=== PATIENT | female | born 1965 | race African-American/Black ===

== ENCOUNTER 2016-11-10 17:11 | Emergency (ER) ==
[2016-11-10] MEDS ORDERED: PHENERGAN IM ONE (19:58)
[2016-11-10] MEDS ORDERED: NUBAIN IM ONE (19:58)
[2016-11-10 20:28] VITALS: BP 142/74
--- NOTE | 2016-11-10 20:34 | PROVIDER DOCUMENTATION ---
HPI-Headache - General Chief Complaint: Headache Stated Complaint: HEADACHE Time Seen by Provider: 11/10/16 19:42 Source: patient Allergies/Adverse Reactions: Patient Allergies Allergy/AdvReac Type Severity Reaction Status Date / Time ondansetron HCl * Allergy Intermediate DIZZINESS Verified 11/04/16 03:32 [From Zofran] prochlorperazine maleate * Allergy Mild FLUSHING Verified 11/04/16 03:32 [From Compazine] sumatriptan [From Imitrex] Allergy Mild SHORTNESS Verified 11/04/16 03:32 OF BREATH prochlorperazine Allergy Unknown Verified 11/04/16 03:32 [From Compazine] prochlorperazine edisylate * Allergy Unknown Verified 11/04/16 03:32 [From Compazine] sumatriptan succinate * Allergy SHORTNESS Verified 11/04/16 03:32 [From Imitrex] OF BREATH Home Medications: Zolmitriptan Nasal [place] [Zomig Nasal [place]] 5 mg PO BID PRN 11/29/14 Dapagliflozin/Metformin HCl [Xigduo Xr 10 mg-500 mg Tablet] 1 tab PO DAILY 08/01 Liraglutide [Victoza] 1 applicatn IM DAILY 08/01/16 Topiramate [Topamax] 250 mg PO BID 08/01/16 Duloxetine [Cymbalta] 90 mg PO DAILY 09/25/16 - History of Present Illness-Headache Nature of Presenting Problem: 51 y/o F with history of migraines presents with migraine HARRELL that began at 10am this morning. She describes HARRELL as located at the left forehead around eye with associated nausea and photophobia, which is typical of her usual migraines. Trigger for her migraine is her menstrual cycle and she is currently menstruating. Currently rates HARRELL as 9/10. Patient reports history of migraines since she was 10 years old and has numerous ER vists for migraines. She has an appointment with her neurologist (Dr. Gaspar) this month for botox injections for migraines. Prior workup includes MRI/CT. Headache Location: reports: frontal (left) Quality of Pain: reports: throbbing Severity: reports: severe Onset/Duration: reports: this morning Timing: reports: still present Headache Context: reports: other (menses) Headache History: reports: frequent headaches, history of migraines Any recent trauma/injury?: reports: none Headache severity at the maximum: severe Headache Exacerbated by:: reports: light Modifying Factors: improves with: nothing Associated Symptoms: denies: fainting, dizziness, neck/back pain, fever/chills, nausea, numbness in legs/feet, vomiting Similar Symptoms Previously?: Yes Review of Systems - Adult - REVIEW OF SYSTEMS - ADULT Constitutional: reports: no symptoms reported. denies: chills, fever Eyes: reports: no symptoms reported. denies: decreased vision, blurred vision, double vision Ears, Nose, Mouth & Throat: reports: no symptoms reported Cardiovascular: reports: no symptoms reported Respiratory: reports: no symptoms reported Gastrointestinal: reports: nausea. denies: abdominal pain, diarrhea, vomiting Genitourinary: reports: no symptoms reported. denies: flank pain Musculoskeletal: reports: no symptoms reported. denies: bone pain, back pain Integumentary: reports: no symptoms reported. denies: itching, rash Neurological: reports: headache/migraines. denies: dizziness/vertigo, loss of balance, numbness, paresthesia Psychiatric: reports: no symptoms reported Endocrine: reports: no symptoms reported Hematologic/Lymphatic: reports: no symptoms reported Allergic/Immunologic: reports: no symptoms reported All Other Systems: Reviewed and Negative Past History - Adult - PAST MEDICAL HISTORY-ADULT Review of Records: reports: Nursing Assessment Review, Medications Reviewed Major Childhood Illnesses: reports: denies history Cardiovascular: reports: HTN Respiratory: reports: asthma Genitourinary: reports: denies history Musculoskeletal: reports: denies history Neurological: reports: headaches/migraines Psychiatric: reports: anxiety, depression Endocrine/Immune: reports: Diabetes Additional History: Frequent visits to the ER - PRIOR SURGERIES/PROCEDURES Surgical/Procedure History: reports: reviewed, not pertinent - PRIOR HOSPITALIZATIONS Prior Hospitalizations: reports: for other non-related - IMMUNIZATION STATUS Childhood Immunizations: See Nurse Assessment Flu Vaccine: See Nurse Assessment - FAMILY HISTORY Family History: reviewed, not pertinent Physical Exam- Neurological - Physical Exam-Neuro Initial Vital Signs Reviewed: Yes General Appearance: appears well, alert, no apparent distress Eye Exam: bilateral eye: normal inspection, PERRL, EOMI HENMT: normocephalic/atraumatic, normal ENT inspection, TMs normal, pharynx normal Head Injury: no evidence of injury Neck: non-tender, full range of motion, supple, normal inspection. negative: Brudzinski's sign, lymphadenopathy, meningismus Respiratory: chest non-tender, lungs clear, normal breath sounds, no pleuratic chest pain, no respiratory distress, no accessory muscle use Cardiovascular: normal peripheral pulses, regular rate, rhythm, no edema, no gallop, no JVD, no murmur Abdominal Exam: normal bowel sounds, non tender, soft, no organomegaly, no pulsatile mass Lymphatic: no adenopathy Extremity: 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, non-tender, normal gait, normal inspection, no pedal edema, no calf tenderness, normal capillary refill, pelvis stable retrimmer Exam: normal hearing, normal speech, PERRL Coordination/Gait: normal finger to nose, normal gait, negative Romberg's sign Motor/Sensory: no motor deficit, no sensory deficit, no pronator drift, negative Babinski's sign Neurologic: retrimmer II-XII nml as tested, no motor/sensory deficits. negative: facial droop, focal weakness, motor weakness, sensory deficit Integumentary: normal color, normal turgor, warm/dry Psych/Mental Status: AL, normal mood/affect, normal thought content, normal thought process, oriented x 3 - Glascow Coma Scale Best Eye Response: (4) open spontaneously Best Verbal Response: (5) oriented Best Motor Response: (6) obeys commands Total Glascow Score: 15 Progress - PLAN OF CARE/RESULTS Progress/Plan/Lab Results: Orders Category Date Time Status Nalbuphine [Nubain] Med 11/10/16 19:58 Discontinued 10 mg IM NOW ONE Promethazine [Phenergan] Med 11/10/16 19:58 Discontinued 25 mg IM NOW ONE Vital Signs Temp Pulse Resp BP Pulse Ox 11/10/16 20:27 98 F 84 18 142/74 99 11/10/16 17:22 97.4 F L 105 H 18 135/70 ondansetron HCl * [From Zofran] Allergy (Intermediate, Verified 11/04/16 03:32) DIZZINESS prochlorperazine maleate * [From Compazine] Allergy (Mild, Verified 11/04/16 03: 32) FLUSHING sumatriptan [From Imitrex] Allergy (Mild, Verified 11/04/16 03:32) SHORTNESS OF BREATH prochlorperazine [From Compazine] Allergy (Verified 11/04/16 03:32) Unknown prochlorperazine edisylate * [From Compazine] Allergy (Verified 11/04/16 03:32) Unknown sumatriptan succinate * [From Imitrex] Allergy (Verified 11/04/16 03:32) SHORTNESS OF BREATH Zolmitriptan Nasal [place] [Zomig Nasal [place]] 5 mg PO BID PRN 11/29/14 Albuterol Sulfate [Albuterol Sulfate Hfa] 1 - 2 puff IH 3-4XDAY PRN PRN #1 hfa.aer.ad 08/26/15 Dapagliflozin/Metformin HCl [Xigduo Xr 10 mg-500 mg Tablet] 1 tab PO DAILY 08/01 Liraglutide [Victoza] 1 applicatn IM DAILY 08/01/16 Topiramate [Topamax] 250 mg PO BID 08/01/16 Duloxetine [Cymbalta] 90 mg PO DAILY 09/25/16 Departure - Departure Time of Disposition Order: 20:36 DIAGNOSIS: Migraine Disposition: HOME 01 Certified Medical Emergency: Emergent Condition: Good Additional Instructions: ED Follow Up Instructions: You have been treated by a care provider in the Emergency Department. These instructions are being provided to you so you can have an understanding of how to care for yourself upon discharge. Upon discharge from the Emergency Department, you are responsible for making arrangements for follow-up care by a physician of your choice. Take all prescribed medications as directed. Return to the Emergency Department immediately for any new or worsening symptoms. You may call the Physician Referral phone number at [phone] to obtain a list of Physicians who are taking new patients. Referrals: Washington Barlow [Primary Care Provider] - Forms: Return to School/Parent Work Instructions: Recurrent Migraine Headache, [id number] Attestation - Physician/ Mid-level Attestation Patient care was provided by Mid-level provider (IDENTITY ACCESS MANAGEMENT ARCHITECT/PA):: Yes Mid-level provider:: Alberta Dutta Mid-level documentation review:: The Mid-level provider documentation, treatment plan and medical decision making was reviewed by the physician who agrees with all treatment and medical decision making by the MLP.
== END 2016-11-10 20:28 | disposition home or self-care (01) ==
LOC: P.ED 17:11
DX: G43.909 Migraine, unspecified, not intractable, without status migrainosus (principal); R51 Headache; R11.0 Nausea; H53.149 Visual discomfort, unspecified; I10 Essential (primary) hypertension; E11.9 Type 2 diabetes mellitus without complications; F41.9 Anxiety disorder, unspecified; F32.9 Major depressive disorder, single episode, unspecified; Z79.899 Other long term (current) drug therapy
CPT/HCPCS: 96372; J2300; J2550

== ENCOUNTER 2016-11-15 16:09 | Emergency (ER) ==
[2016-11-15 16:32] VITALS: BP 132/73
[2016-11-15] MEDS ORDERED: PHENERGAN IM ONE (17:02)
[2016-11-15] MEDS ORDERED: NUBAIN IM ONE (17:02)
--- NOTE | 2016-11-15 17:15 | PROVIDER DOCUMENTATION ---
HPI-Headache - General Chief Complaint: Headache Stated Complaint: HEADACHE Time Seen by Provider: 11/15/16 16:47 Source: patient Allergies/Adverse Reactions: Patient Allergies Allergy/AdvReac Type Severity Reaction Status Date / Time ondansetron HCl * Allergy Intermediate DIZZINESS Verified 11/04/16 03:32 [From Zofran] prochlorperazine maleate * Allergy Mild FLUSHING Verified 11/04/16 03:32 [From Compazine] sumatriptan [From Imitrex] Allergy Mild SHORTNESS Verified 11/04/16 03:32 OF BREATH prochlorperazine Allergy Unknown Verified 11/04/16 03:32 [From Compazine] prochlorperazine edisylate * Allergy Unknown Verified 11/04/16 03:32 [From Compazine] sumatriptan succinate * Allergy SHORTNESS Verified 11/04/16 03:32 [From Imitrex] OF BREATH Home Medications: Zolmitriptan Nasal [place] [Zomig Nasal [place]] 5 mg PO BID PRN 11/29/14 Dapagliflozin/Metformin HCl [Xigduo Xr 10 mg-500 mg Tablet] 1 tab PO DAILY 08/01 Liraglutide [Victoza] 1 applicatn IM DAILY 08/01/16 Topiramate [Topamax] 250 mg PO BID 08/01/16 Duloxetine [Cymbalta] 90 mg PO DAILY 09/25/16 - History of Present Illness-Headache Nature of Presenting Problem: This pt, who is well known to the ED, presents today c complaints of HARRELL. This is similar to all previous episodes. No new symptoms. Headache Location: reports: global Quality of Pain: reports: aching Severity: reports: mild Onset/Duration: reports: this morning Timing: reports: still present Headache History: reports: history of migraines Headache severity at the maximum: moderate Headache Exacerbated by:: reports: light, noise Similar Symptoms Previously?: Yes Recently seen or treated by another doctor?: Yes Review of Systems - Adult - REVIEW OF SYSTEMS - ADULT Constitutional: reports: no symptoms reported. denies: chills, fatique Eyes: reports: no symptoms reported. denies: discharge, dry eyes Ears, Nose, Mouth & Throat: reports: no symptoms reported. denies: ear discharge, ear pain Cardiovascular: reports: no symptoms reported. denies: chest pain, edema Respiratory: reports: no symptoms reported. denies: chronic cough, cough Gastrointestinal: reports: no symptoms reported. denies: abdominal pain, hematemesis Genitourinary: reports: no symptoms reported. denies: dysuria, discharge Musculoskeletal: reports: no symptoms reported. denies: bone pain, back pain Integumentary: reports: no symptoms reported. denies: hives, hair loss Neurological: reports: headache/migraines. denies: ataxia, dizziness/vertigo Psychiatric: reports: no symptoms reported. denies: anxiety, anti-depressant use Endocrine: reports: no symptoms reported Hematologic/Lymphatic: reports: no symptoms reported Allergic/Immunologic: reports: no symptoms reported All Other Systems: Reviewed and Negative Past History - Adult - PAST MEDICAL HISTORY-ADULT Review of Records: reports: Old Records Reviewed, Nursing Assessment Review, Medications Reviewed, Social history reviewed & non-contributory. Major Childhood Illnesses: reports: denies history Cardiovascular: reports: HTN Respiratory: reports: asthma Gastrointestinal: reports: denies history Obstetrical/Gynecological: reports: denies history Genitourinary: reports: denies history Musculoskeletal: reports: denies history Neurological: reports: headaches/migraines Psychiatric: reports: anxiety, depression Endocrine/Immune: reports: Diabetes Other Conditions: reports: denies history Additional History: Frequent visits to the ER - PRIOR SURGERIES/PROCEDURES Surgical/Procedure History: reports: reviewed, not pertinent - PRIOR HOSPITALIZATIONS Prior Hospitalizations: reports: for other non-related - IMMUNIZATION STATUS Childhood Immunizations: See Nurse Assessment Flu Vaccine: See Nurse Assessment - FAMILY HISTORY Family History: reviewed, not pertinent Physical Exam- Neurological - Physical Exam-Neuro Initial Vital Signs Reviewed: Yes General Appearance: appears well, alert, no apparent distress Eye Exam: bilateral eye: normal inspection, PERRL, EOMI HENMT: normocephalic/atraumatic, normal ENT inspection, TMs normal, pharynx normal Head Injury: no evidence of injury Neck: non-tender, full range of motion, supple, normal inspection. negative: limited range of motion, lymphadenopathy, meningismus Respiratory: chest non-tender, lungs clear, normal breath sounds, no pleuratic chest pain, no respiratory distress, no accessory muscle use. negative: respiratory distress, decreased breath sounds, accessory muscle use Cardiovascular: normal peripheral pulses, regular rate, rhythm, no edema, no gallop, no JVD, no murmur. 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 negative: abnormal speech, facial asymmetry, facial droop, facial paresthesias, facial weakness, gaze palsy , tongue deviation to R, tongue deviation to L Coordination/Gait: normal finger to nose, normal gait, negative Romberg's sign Motor/Sensory: no motor deficit, no sensory deficit, no pronator drift, negative Babinski's sign. negative: sensory deficit, weak motor strength RUE, weak motor strength LUE, weak motor strength RLE, weak motor strength LLE Neurologic: scrub wheel operator II-XII nml as tested, no motor/sensory deficits. negative: facial droop, focal weakness, motor weakness, sensory deficit Integumentary: normal color, normal turgor, warm/dry Psych/Mental Status: AL, normal mood/affect, normal thought content, normal thought process, oriented x 3 - Glascow Coma Scale Best Eye Response: (4) open spontaneously Best Verbal Response: (5) oriented Best Motor Response: (6) obeys commands Total Glascow Score: 15 Progress - PLAN OF CARE/RESULTS Progress/Plan/Lab Results: Orders Category Date Time Status Nalbuphine [Nubain] Med 11/15/16 17:02 Discontinued 10 mg IM NOW ONE Promethazine [Phenergan] Med 11/15/16 17:02 Discontinued 25 mg IM NOW ONE Vital Signs Temp Pulse Resp BP Pulse Ox 11/15/16 16:28 98 F 103 H 18 132/73 96 ondansetron HCl * [From Zofran] Allergy (Intermediate, Verified 11/04/16 03:32) DIZZINESS prochlorperazine maleate * [From Compazine] Allergy (Mild, Verified 11/04/16 03: 32) FLUSHING sumatriptan [From Imitrex] Allergy (Mild, Verified 11/04/16 03:32) SHORTNESS OF BREATH prochlorperazine [From Compazine] Allergy (Verified 11/04/16 03:32) Unknown prochlorperazine edisylate * [From Compazine] Allergy (Verified 11/04/16 03:32) Unknown sumatriptan succinate * [From Imitrex] Allergy (Verified 11/04/16 03:32) SHORTNESS OF BREATH Zolmitriptan Nasal [place] [Zomig Nasal [place]] 5 mg PO BID PRN 11/29/14 Albuterol Sulfate [Albuterol Sulfate Hfa] 1 - 2 puff IH 3-4XDAY PRN PRN #1 hfa.aer.ad 08/26/15 Dapagliflozin/Metformin HCl [Xigduo Xr 10 mg-500 mg Tablet] 1 tab PO DAILY 08/01 Liraglutide [Victoza] 1 applicatn IM DAILY 08/01/16 Topiramate [Topamax] 250 mg PO BID 08/01/16 Duloxetine [Cymbalta] 90 mg PO DAILY 09/25/16 Departure - Departure Time of Disposition Order: 17:16 DIAGNOSIS: Migraine Qualifiers: Migraine type: unspecified Status migrainosus presence: without status migrainosus Intractability: not intractable Qualified Code(s): G43.909 - Migraine, unspecified, not intractable, without status migrainosus Disposition: HOME 01 Certified Medical Emergency: Urgent Condition: Good Additional Instructions: Follow up with your primary care provider. ED Follow Up Instructions: You have been treated by a care provider in the Emergency Department. These instructions are being provided to you so you can have an understanding of how to care for yourself upon discharge. Upon discharge from the Emergency Department, you are responsible for making arrangements for follow-up care by a physician of your choice. Take all prescribed medications as directed. Return to the Emergency Department immediately for any new or worsening symptoms. You may call the Physician Referral phone number at [phone] to obtain a list of Physicians who are taking new patients. Attestation - Physician/ Mid-level Attestation Patient care was provided by Mid-level provider (PRESS SETUP OPERATOR/PA):: Yes Mid-level provider:: Dick Collins Mid-level documentation review:: The Mid-level provider documentation, treatment plan and medical decision making was reviewed by the physician who agrees with all treatment and medical decision making by the MLP.
== END 2016-11-15 17:40 | disposition home or self-care (01) ==
LOC: P.ED 16:09
DX: G43.909 Migraine, unspecified, not intractable, without status migrainosus (principal); R51 Headache; I10 Essential (primary) hypertension; E11.9 Type 2 diabetes mellitus without complications; F41.9 Anxiety disorder, unspecified; F32.9 Major depressive disorder, single episode, unspecified; Z79.899 Other long term (current) drug therapy
CPT/HCPCS: 96372; J2300; J2550

== ENCOUNTER 2016-12-31 11:52 | Emergency (ER) ==
[2016-12-31 12:01] VITALS: BP 149/89
[2016-12-31] MEDS ORDERED: PHENERGAN IM ONE (12:14)
[2016-12-31] MEDS ORDERED: NUBAIN IM ONE (12:14)
--- NOTE | 2016-12-31 12:16 | PROVIDER DOCUMENTATION ---
HPI-Headache <Bria Torres - Last Filed: 12/31/16 12:15> - General Source: patient - History of Present Illness-Headache Headache Location: reports: global Quality of Pain: reports: throbbing Severity: reports: mild Onset/Duration: reports: other (chronic) Timing: reports: still present, constant Headache Context: reports: nothing Headache History: reports: frequent headaches, chronic headaches, history of migraines Any recent trauma/injury?: reports: none Headache severity at the maximum: moderate Headache Exacerbated by:: denies: light Modifying Factors: improves with: other Associated Symptoms: reports: headache. denies: chest pain, neck/back pain, fever/chills, insomnia, nausea, paresthesia, vomiting Similar Symptoms Previously?: Yes Recently seen or treated by another doctor?: Yes <Soy Pérez - Last Filed: 12/31/16 12:24> - General Chief Complaint: Headache Stated Complaint: HEADACHE Time Seen by Provider: 12/31/16 12:14 Allergies/Adverse Reactions: Patient Allergies Allergy/AdvReac Type Severity Reaction Status Date / Time ondansetron HCl * Allergy Intermediate DIZZINESS Verified 11/04/16 03:32 [From Zofran] prochlorperazine maleate * Allergy Mild FLUSHING Verified 11/04/16 03:32 [From Compazine] sumatriptan [From Imitrex] Allergy Mild SHORTNESS Verified 11/04/16 03:32 OF BREATH prochlorperazine Allergy Unknown Verified 11/04/16 03:32 [From Compazine] prochlorperazine edisylate * Allergy Unknown Verified 11/04/16 03:32 [From Compazine] sumatriptan succinate * Allergy SHORTNESS Verified 11/04/16 03:32 [From Imitrex] OF BREATH Home Medications: Home Medication List Medication Instructions Recorded Confirmed Last Taken Type Duloxetine [Cymbalta] 90 mg PO DAILY 06/02/14 12/29/16 07/12/14 08:00 History Loratadine [Claritin] 10 mg PO DAILY 06/02/14 12/29/16 07/12/14 08:00 History Metformin [Glucophage] 500 mg PO DAILY 06/02/14 12/29/16 07/12/14 08:00 History Topiramate [Topamax] 100 mg PO BID 06/02/14 12/29/16 07/12/14 08:00 History Zolmitriptan Nasal [place] [Zomig 5 mg PO BID PRN 11/29/14 12/29/16 09/25/16 History Nasal [place]] Albuterol Sulfate [Albuterol 1 - 2 puff IH 3-4XDAY PRN PRN #1 08/26/15 12/29/16 09/25/16 Rx Sulfate Hfa] hfa.aer.ad Dapagliflozin/Metformin HCl 1 tab PO DAILY 08/01/16 12/29/16 09/25/16 History [Xigduo Xr 10 mg-500 mg Tablet] Liraglutide [Victoza] 1 applicatn IM DAILY 08/01/16 12/29/16 09/25/16 History Topiramate [Topamax] 250 mg PO BID 08/01/16 12/29/16 09/25/16 History Duloxetine [Cymbalta] 90 mg PO DAILY 09/25/16 12/29/16 09/25/16 History Rizatriptan Benzoate [Maxalt] 10 mg PO DAILY PRN PRN #3 tablet 11/17/16 Unknown Rx Clindamycin [Cleocin] 300 mg PO Q6HR #60 capsule 11/23/16 12/29/16 Unknown Rx Dapagliflozin/Metformin HCl 1 each PO DAILY #30 tab.bp.24h 11/23/16 12/29/16 Unknown Rx [Xigduo Xr 10 mg-500 mg Tablet] Dapagliflozin/Metformin HCl 1 each PO DAILY #30 tab.bp.24h 12/09/16 12/29/16 Unknown Rx [Xigduo Xr 10 mg-1,000 mg Tab] Duloxetine HCl [Cymbalta] 90 mg PO DAILY #30 capsule. 12/09/16 12/29/16 Unknown Rx Duloxetine [Cymbalta] 30 mg PO DAILY #30 capsule 12/09/16 12/29/16 Unknown Rx Duloxetine [Cymbalta] 60 mg PO DAILY #30 capsule 12/09/16 12/29/16 Unknown Rx Liraglutide [Victoza] 1.8 mg SUBQ DAILY #5 pen.injctr 12/09/16 12/29/16 Unknown Rx - History of Present Illness-Headache Nature of Presenting Problem: patient is 51 yo f that presents to the Er with her typical migraine headache that she is seen for multiple times a week. She denies any focal neuro issues. She does have some photophobia. Denies vomiting, fever, or neck pain (Soy Pérez) Review of Systems - Adult - REVIEW OF SYSTEMS - ADULT Constitutional: denies: chills, fever Eyes: denies: decreased vision, blurred vision, double vision Ears, Nose, Mouth & Throat: denies: ear pain, sinus problem, throat pain, throat swelling Cardiovascular: denies: chest pain, palpitations, syncope Respiratory: denies: shortness of breath, wheezing Gastrointestinal: denies: abdominal pain, diarrhea, nausea, vomiting Genitourinary: reports: no symptoms reported Musculoskeletal: denies: back pain, joint pain, neck pain Integumentary: reports: no symptoms reported Neurological: reports: headache/migraines. denies: dizziness/vertigo, seizure, syncope Psychiatric: reports: no symptoms reported Endocrine: reports: no symptoms reported Hematologic/Lymphatic: reports: no symptoms reported Allergic/Immunologic: reports: no symptoms reported All Other Systems: Reviewed and Negative <Soy Pérez - Last Filed: 12/31/16 12:24> Past History - Adult - PAST MEDICAL HISTORY-ADULT Cardiovascular: reports: HTN Respiratory: reports: asthma Neurological: reports: headaches/migraines Psychiatric: reports: anxiety, depression Endocrine/Immune: reports: Diabetes Additional History: Frequent visits to the ER - PRIOR SURGERIES/PROCEDURES Surgical/Procedure History: reports: none, reviewed, not pertinent - PRIOR HOSPITALIZATIONS Prior Hospitalizations: reports: for other non-related - IMMUNIZATION STATUS Childhood Immunizations: See Nurse Assessment Flu Vaccine: See Nurse Assessment - FAMILY HISTORY Family History: reviewed, not pertinent <Bria Torres - Last Filed: 12/31/16 12:15> - PAST MEDICAL HISTORY-ADULT Review of Records: reports: Nursing Assessment Review, Medications Reviewed Neurological: reports: headaches/migraines Psychiatric: reports: anxiety Endocrine/Immune: reports: Diabetes Diabetes Type: Type 2 - PRIOR SURGERIES/PROCEDURES Surgical/Procedure History: reports: reviewed, not pertinent - IMMUNIZATION STATUS Childhood Immunizations: See Nurse Assessment Flu Vaccine: See Nurse Assessment - FAMILY HISTORY Family History: reviewed, not pertinent - SOCIAL HISTORY Smoking: cigarettes, less than 1 pack/day Alcohol Use Frequency: occasionally Living Situation: family <Soy Pérez - Last Filed: 12/31/16 12:24> Physical Exam- Neurological - Physical Exam-Neuro Initial Vital Signs Reviewed: Yes General Appearance: alert, no apparent distress Eye Exam: bilateral eye: normal inspection, PERRL HENMT: normocephalic/atraumatic, moist mucous membranes, normal ENT inspection Head Injury: no evidence of injury. negative: flap, raccoon eyes Neck: full range of motion, normal inspection. negative: lymphadenopathy Respiratory: lungs clear, normal breath sounds, no respiratory distress, no accessory muscle use Cardiovascular: regular rate, rhythm, no edema, no murmur Abdominal Exam: normal bowel sounds, non tender, soft Extremity: 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, normal inspection clam dredger Exam: normal hearing, normal speech, PERRL Motor/Sensory: no motor deficit, no sensory deficit Neurologic: clam dredger II-XII nml as tested, no motor/sensory deficits Integumentary: normal color, warm/dry Psych/Mental Status: normal mood/affect, normal thought content, normal thought process, oriented x 3 - Glascow Coma Scale Best Eye Response: (4) open spontaneously Best Verbal Response: (5) oriented Best Motor Response: (6) obeys commands Total Glascow Score: 15 <Soy Pérez - Last Filed: 12/31/16 12:24> Progress <Bria Torres - Last Filed: 12/31/16 12:15> <Soy Pérez - Last Filed: 12/31/16 12:24> - PLAN OF CARE/RESULTS Progress/Plan/Lab Results: Vital Signs Temp Pulse Resp BP Pulse Ox 12/31/16 12:01 98 F 100 H 20 149/89 99 12/31/16 11:56 98 F 99 ondansetron HCl * [From Zofran] Allergy (Intermediate, Verified 11/04/16 03:32) DIZZINESS prochlorperazine maleate * [From Compazine] Allergy (Mild, Verified 11/04/16 03: 32) FLUSHING sumatriptan [From Imitrex] Allergy (Mild, Verified 11/04/16 03:32) SHORTNESS OF BREATH prochlorperazine [From Compazine] Allergy (Verified 11/04/16 03:32) Unknown prochlorperazine edisylate * [From Compazine] Allergy (Verified 11/04/16 03:32) Unknown sumatriptan succinate * [From Imitrex] Allergy (Verified 11/04/16 03:32) SHORTNESS OF BREATH Duloxetine [Cymbalta] 90 mg PO DAILY 06/02/14 Loratadine [Claritin] 10 mg PO DAILY 06/02/14 Metformin [Glucophage] 500 mg PO DAILY 06/02/14 Topiramate [Topamax] 100 mg PO BID 06/02/14 Zolmitriptan Nasal [place] [Zomig Nasal [place]] 5 mg PO BID PRN 11/29/14 Albuterol Sulfate [Albuterol Sulfate Hfa] 1 - 2 puff IH 3-4XDAY PRN PRN #1 hfa.aer.ad 08/26/15 Dapagliflozin/Metformin HCl [Xigduo Xr 10 mg-500 mg Tablet] 1 tab PO DAILY 08/01 Liraglutide [Victoza] 1 applicatn IM DAILY 08/01/16 Topiramate [Topamax] 250 mg PO BID 08/01/16 Duloxetine [Cymbalta] 90 mg PO DAILY 09/25/16 Rizatriptan Benzoate [Maxalt] 10 mg PO DAILY PRN PRN #3 tablet 11/17/16 Clindamycin [Cleocin] 300 mg PO Q6HR #60 capsule 11/23/16 Dapagliflozin/Metformin HCl [Xigduo Xr 10 mg-500 mg Tablet] 1 each PO DAILY #30 tab.bp.24h 11/23/16 Dapagliflozin/Metformin HCl [Xigduo Xr 10 mg-1,000 mg Tab] 1 each PO DAILY #30 tab.bp.24h 12/09/16 Duloxetine HCl [Cymbalta] 90 mg PO DAILY #30 capsule. 12/09/16 Duloxetine [Cymbalta] 30 mg PO DAILY #30 capsule 12/09/16 Duloxetine [Cymbalta] 60 mg PO DAILY #30 capsule 12/09/16 Liraglutide [Victoza] 1.8 mg SUBQ DAILY #5 pen.injctr 12/09/16 Orders Category Date Time Status Nalbuphine [Nubain] Med 12/31/16 12:14 Discontinued 20 mg IM NOW ONE Promethazine [Phenergan] Med 12/31/16 12:14 Discontinued 25 mg IM NOW ONE (Soy Pérez) Departure - Departure Time of Disposition Order: 12:15 Certified Medical Emergency: Emergent <Bria Torres - Last Filed: 12/31/16 12:15> <Soy Pérez - Last Filed: 12/31/16 12:24> - Departure DIAGNOSIS: Migraine Qualifiers: Migraine type: without aura Status migrainosus presence: without status migrainosus Intractability: not intractable Qualified Code(s): G43.009 - Migraine without aura, not intractable, without status migrainosus Disposition: HOME 01 Condition: Stable Additional Instructions: Follow up with the neurologist ED Follow Up Instructions: You have been treated by a care provider in the Emergency Department. These instructions are being provided to you so you can have an understanding of how to care for yourself upon discharge. Upon discharge from the Emergency Department, you are responsible for making arrangements for follow-up care by a physician of your choice. Take all prescribed medications as directed. Return to the Emergency Department immediately for any new or worsening symptoms. You may call the Physician Referral phone number at [phone] to obtain a list of Physicians who are taking new patients. Referrals: Washington Barlow [Primary Care Provider] - Attestation - Scribe Verification/Attestation Scribe:: Soy Pérez Acting as Scribe for:: Bria Torres Scribe documention review:: This chart was documented by a scribe and accurately reflects the service the provider performed and the decisions made by the provider. - Physician/ CARL Attestation Patient care was provided by Advanced Practice Provider:: Yes Advanced Practice Provider:: Bria Torres Advanced Practice Provider documentation review:: The Mid-level provider documentation, treatment plan and medical decision making was reviewed by the physician who agrees with all treatment and medical decision making by the MLP. <Soy Pérez - Last Filed: 12/31/16 12:24> Physician Attestation - Physician Attestation I, the provider, attest to the following statement:: Bria C. Hennigar Physician documentation Attestation:: This documentation recorded by the scribe accurately reflects the service I personally performed and the decisions made by me. <Soy Pérez - Last Filed: 12/31/16 12:24>
== END 2016-12-31 12:55 | disposition home or self-care (01) ==
LOC: P.ED 11:52
DX: G43.009 Migraine without aura, not intractable, without status migrainosus (principal); R51 Headache; I10 Essential (primary) hypertension; F41.9 Anxiety disorder, unspecified; F32.9 Major depressive disorder, single episode, unspecified; E11.9 Type 2 diabetes mellitus without complications; F17.210 Nicotine dependence, cigarettes, uncomplicated; Z79.899 Other long term (current) drug therapy
CPT/HCPCS: 96372; J2300; J2550

== ENCOUNTER 2017-01-02 12:37 | Emergency (ER) ==
[2017-01-02 12:49] VITALS: BP 129/68
[2017-01-02] MEDS ORDERED: PHENERGAN IM ONE (13:27)
[2017-01-02] MEDS ORDERED: NUBAIN IM ONE (13:27)
--- NOTE | 2017-01-02 13:32 | PROVIDER DOCUMENTATION ---
HPI-Headache - General Chief Complaint: Headache Stated Complaint: HEADACHE Time Seen by Provider: 01/02/17 12:53 Source: patient Allergies/Adverse Reactions: Patient Allergies Allergy/AdvReac Type Severity Reaction Status Date / Time ondansetron HCl * Allergy Intermediate DIZZINESS Verified 11/04/16 03:32 [From Zofran] prochlorperazine maleate * Allergy Mild FLUSHING Verified 11/04/16 03:32 [From Compazine] sumatriptan [From Imitrex] Allergy Mild SHORTNESS Verified 11/04/16 03:32 OF BREATH prochlorperazine Allergy Unknown Verified 11/04/16 03:32 [From Compazine] prochlorperazine edisylate * Allergy Unknown Verified 11/04/16 03:32 [From Compazine] sumatriptan succinate * Allergy SHORTNESS Verified 11/04/16 03:32 [From Imitrex] OF BREATH Home Medications: Home Medication List Medication Instructions Recorded Confirmed Last Taken Type Duloxetine [Cymbalta] 90 mg PO DAILY 06/02/14 12/29/16 07/12/14 08:00 History Loratadine [Claritin] 10 mg PO DAILY 06/02/14 12/29/16 07/12/14 08:00 History Metformin [Glucophage] 500 mg PO DAILY 06/02/14 12/29/16 07/12/14 08:00 History Topiramate [Topamax] 100 mg PO BID 06/02/14 12/29/16 07/12/14 08:00 History Zolmitriptan Nasal [place] [Zomig 5 mg PO BID PRN 11/29/14 12/29/16 09/25/16 History Nasal [place]] Albuterol Sulfate [Albuterol 1 - 2 puff IH 3-4XDAY PRN PRN #1 08/26/15 12/29/16 09/25/16 Rx Sulfate Hfa] hfa.aer.ad Dapagliflozin/Metformin HCl 1 tab PO DAILY 08/01/16 12/29/16 09/25/16 History [Xigduo Xr 10 mg-500 mg Tablet] Liraglutide [Victoza] 1 applicatn IM DAILY 08/01/16 12/29/16 09/25/16 History Topiramate [Topamax] 250 mg PO BID 09/12/29/16 09/25/16 History Duloxetine [Cymbalta] 90 mg PO DAILY 09/25/16 12/29/16 09/25/16 History Rizatriptan Benzoate [Maxalt] 10 mg PO DAILY PRN PRN #3 tablet 11/17/16 Unknown Rx Clindamycin [Cleocin] 300 mg PO Q6HR #60 capsule 11/23/16 12/29/16 Unknown Rx Dapagliflozin/Metformin HCl 1 each PO DAILY #30 tab.bp.24h 11/23/16 12/29/16 Unknown Rx [Xigduo Xr 10 mg-500 mg Tablet] Dapagliflozin/Metformin HCl 1 each PO DAILY #30 tab.bp.24h 12/09/16 12/29/16 Unknown Rx [Xigduo Xr 10 mg-1,000 mg Tab] Duloxetine HCl [Cymbalta] 90 mg PO DAILY #30 capsule. 12/09/16 12/29/16 Unknown Rx Duloxetine [Cymbalta] 30 mg PO DAILY #30 capsule 12/09/16 12/29/16 Unknown Rx Duloxetine [Cymbalta] 60 mg PO DAILY #30 capsule 12/09/16 12/29/16 Unknown Rx Liraglutide [Victoza] 1.8 mg SUBQ DAILY #5 pen.injctr 12/09/16 12/29/16 Unknown Rx Hydroxyzine Pamoate [Vistaril] 25 mg PO TID PRN PRN #30 capsule 01/02/17 Unknown Rx - History of Present Illness-Headache Nature of Presenting Problem: 51 y/o BF presents to ED with one day hx of HARRELL. Pt states long hx of HARRELL and is seen in the ED routinely for them. states also having anxiety due to father passing away yesterday. Denies vision changes, N/V. States HARRELL is typical pattern in L frontal region and 8/10. Review of Systems - Adult - REVIEW OF SYSTEMS - ADULT Constitutional: reports: no symptoms reported. denies: chills, fever Eyes: reports: no symptoms reported. denies: blurred vision, double vision Ears, Nose, Mouth & Throat: reports: no symptoms reported. denies: ear pain, nose pain Cardiovascular: reports: no symptoms reported. denies: chest pain, palpitations Respiratory: reports: no symptoms reported. denies: dyspnea on exertion, shortness of breath Gastrointestinal: reports: no symptoms reported. denies: nausea, vomiting Genitourinary: reports: no symptoms reported. denies: dysuria, frequency Musculoskeletal: reports: no symptoms reported. denies: joint pain, muscle aches Integumentary: reports: no symptoms reported. denies: nail changes, rash Neurological: reports: see HPI, headache/migraines. denies: numbness, paresthesia Psychiatric: reports: no symptoms reported Endocrine: reports: no symptoms reported. denies: cold intolerance, heat intolerance Hematologic/Lymphatic: reports: no symptoms reported. denies: easy bruising, prolonged bleeding Allergic/Immunologic: reports: no symptoms reported All Other Systems: Reviewed and Negative Past History - Adult - PAST MEDICAL HISTORY-ADULT Review of Records: reports: Nursing Assessment Review, Medications Reviewed Cardiovascular: reports: HTN Respiratory: reports: asthma Neurological: reports: headaches/migraines Psychiatric: reports: anxiety Endocrine/Immune: reports: Diabetes Additional History: Frequent visits to the ER - PRIOR SURGERIES/PROCEDURES Surgical/Procedure History: reports: reviewed, not pertinent - PRIOR HOSPITALIZATIONS Prior Hospitalizations: reports: for other non-related - IMMUNIZATION STATUS Childhood Immunizations: See Nurse Assessment Flu Vaccine: See Nurse Assessment - FAMILY HISTORY Family History: reviewed, not pertinent - SOCIAL HISTORY Smoking: cigarettes, less than 1 pack/day Provider spent 3-5 mins advising pt. on dangers of tobacco.: Discussed manners to quit use, and f/u contacts for add'l counseling. Physical Exam- Neurological - Physical Exam-Neuro Initial Vital Signs Reviewed: Yes General Appearance: alert, mild distress Eye Exam: bilateral eye: normal inspection, PERRL, EOMI HENMT: normocephalic/atraumatic. negative: hearing deficit Head Injury: no evidence of injury Neck: full range of motion, supple, normal inspection Respiratory: no respiratory distress Extremity: normal gait, normal inspection. negative: abnormal NV exam map drafter Exam: normal hearing, normal speech, PERRL. negative: abnormal eye position , abnormal pupil position, abnormal speech, facial asymmetry, facial droop, facial paresthesias, facial weakness, gaze palsy, hearing deficit (R), hearing deficit (L), tongue deviation to R, tongue deviation to L Coordination/Gait: normal gait Motor/Sensory: negative: sensory deficit Neurologic: map drafter II-XII nml as tested. negative: aphasia, EOM palsy, facial droop, focal weakness, motor weakness Integumentary: normal color, normal turgor, warm/dry Psych/Mental Status: normal mood/affect, normal thought content, normal thought process, oriented x 3 Departure - Departure Time of Disposition Order: 13:30 DIAGNOSIS: Anxiety Migraine Qualifiers: Migraine type: unspecified Status migrainosus presence: without status migrainosus Intractability: not intractable Qualified Code(s): G43.909 - Migraine, unspecified, not intractable, without status migrainosus Disposition: HOME 01 Certified Medical Emergency: Emergent Condition: Stable Additional Instructions: Follow up with PCP or specialist for further management of anxiety. ED Follow Up Instructions: You have been treated by a care provider in the Emergency Department. These instructions are being provided to you so you can have an understanding of how to care for yourself upon discharge. Upon discharge from the Emergency Department, you are responsible for making arrangements for follow-up care by a physician of your choice. Take all prescribed medications as directed. Return to the Emergency Department immediately for any new or worsening symptoms. You may call the Physician Referral phone number at [phone] to obtain a list of Physicians who are taking new patients. Prescriptions: Hydroxyzine Pamoate [Vistaril] 25 mg PO TID PRN PRN #30 capsule PRN Reason: Anxiety Referrals: Washington Barlow [Primary Care Provider] - Forms: Return to School/Parent Work Instructions: Migraine Headache, [id number], Panic Attacks, [id number], Hydroxyzine capsules or tablets Attestation - Physician/ CARL Attestation Patient care was provided by Advanced Practice Provider:: Yes Advanced Practice Provider:: Talia Woods Advanced Practice Provider documentation review:: The Mid-level provider documentation, treatment plan and medical decision making was reviewed by the physician who agrees with all treatment and medical decision making by the MLP.
== END 2017-01-02 13:56 | disposition home or self-care (01) ==
LOC: P.ED 12:37
DX: G43.909 Migraine, unspecified, not intractable, without status migrainosus (principal); F41.9 Anxiety disorder, unspecified; R51 Headache; I10 Essential (primary) hypertension; E11.9 Type 2 diabetes mellitus without complications; J45.909 Unspecified asthma, uncomplicated; F17.210 Nicotine dependence, cigarettes, uncomplicated; Z79.899 Other long term (current) drug therapy; Z71.6 Tobacco abuse counseling
CPT/HCPCS: 96372; J2300; J2550

== ENCOUNTER 2017-01-04 13:33 | Emergency (ER) ==
[2017-01-04] MEDS ORDERED: PHENERGAN IM ONE (13:44)
[2017-01-04] MEDS ORDERED: NUBAIN IM ONE (13:44)
[2017-01-04 13:45] VITALS: BP 124/71
--- NOTE | 2017-01-04 13:45 | PROVIDER DOCUMENTATION ---
HPI-Headache - General Chief Complaint: Headache Stated Complaint: HEADACHE Time Seen by Provider: 01/04/17 13:39 Allergies/Adverse Reactions: Patient Allergies Allergy/AdvReac Type Severity Reaction Status Date / Time ondansetron HCl * Allergy Intermediate DIZZINESS Verified 01/04/17 13:45 [From Zofran] prochlorperazine maleate * Allergy Mild FLUSHING Verified 01/04/17 13:45 [From Compazine] sumatriptan [From Imitrex] Allergy Mild SHORTNESS Verified 01/04/17 13:45 OF BREATH prochlorperazine Allergy Unknown Verified 01/04/17 13:45 [From Compazine] prochlorperazine edisylate * Allergy Unknown Verified 01/04/17 13:45 [From Compazine] sumatriptan succinate * Allergy SHORTNESS Verified 01/04/17 13:45 [From Imitrex] OF BREATH Home Medications: Home Medication List Medication Instructions Recorded Confirmed Last Taken Type Duloxetine [Cymbalta] 90 mg PO DAILY 06/02/14 01/04/17 01/03/17 History Loratadine [Claritin] 10 mg PO DAILY 06/02/14 01/04/17 01/03/17 History Metformin [Glucophage] 500 mg PO DAILY 06/02/14 01/04/17 01/03/17 History Topiramate [Topamax] 100 mg PO BID 06/02/14 01/04/17 01/03/17 History Zolmitriptan Nasal [place] [Zomig 5 mg PO BID PRN 11/29/14 01/04/17 01/03/17 History Nasal [place]] Albuterol Sulfate [Albuterol 1 - 2 puff IH 3-4XDAY PRN PRN #1 08/26/15 01/04/17 01/03/17 Rx Sulfate Hfa] hfa.aer.ad Dapagliflozin/Metformin HCl 1 tab PO DAILY 08/01/16 01/04/17 01/03/17 History [Xigduo Xr 10 mg-500 mg Tablet] Liraglutide [Victoza] 1 applicatn IM DAILY 08/01/16 01/04/17 01/03/17 History Topiramate [Topamax] 250 mg PO BID 08/01/16 01/04/17 01/03/17 History Duloxetine [Cymbalta] 90 mg PO DAILY 09/25/16 01/04/17 01/03/17 History Rizatriptan Benzoate [Maxalt] 10 mg PO DAILY PRN PRN #3 tablet 11/17/1601/03/17 Rx Clindamycin [Cleocin] 300 mg PO Q6HR #60 capsule 11/23/16 01/04/17 01/03/17 Rx Dapagliflozin/Metformin HCl 1 each PO DAILY #30 tab.bp.24h 11/23/16 01/04/17 Rx [Xigduo Xr 10 mg-500 mg Tablet] Dapagliflozin/Metformin HCl 1 each PO DAILY #30 tab.bp.24h 12/09/16 01/04/17 Rx [Xigduo Xr 10 mg-1,000 mg Tab] Duloxetine HCl [Cymbalta] 90 mg PO DAILY #30 capsule. 12/09/16 01/04/17 Rx Duloxetine [Cymbalta] 30 mg PO DAILY #30 capsule 12/09/16 01/04/17 01/03/17 Rx Duloxetine [Cymbalta] 60 mg PO DAILY #30 capsule 12/09/16 01/04/17 01/03/17 Rx Liraglutide [Victoza] 1.8 mg SUBQ DAILY #5 pen.injctr 12/09/16 01/04/17 Rx Hydroxyzine Pamoate [Vistaril] 25 mg PO TID PRN PRN #30 capsule 01/02/1701/03/17 Rx Clindamycin [Cleocin] 300 mg PO BID #14 capsule 01/04/17 Unknown Rx - History of Present Illness-Headache Nature of Presenting Problem: Pt reports her father recently and this is causing increase in her frequency of migraines. Also has c/o left lower molar pain. Headache Location: reports: frontal (left) Quality of Pain: reports: aching, pressure, throbbing Severity: reports: moderate Onset/Duration: reports: 24 hours ago Timing: reports: getting worse Headache History: reports: chronic headaches Any recent trauma/injury?: reports: none Headache severity at the maximum: moderate Headache Exacerbated by:: reports: light, noise, movement, position Modifying Factors: improves with: analgesics Associated Symptoms: reports: headache, insomnia, nausea. denies: fainting, dizziness, confusion, neck/back pain, slurred speech, vomiting, vision changes Similar Symptoms Previously?: Yes Review of Systems - Adult - REVIEW OF SYSTEMS - ADULT Constitutional: denies: chills, fever Eyes: denies: blurred vision, double vision Ears, Nose, Mouth & Throat: reports: no symptoms reported Cardiovascular: reports: no symptoms reported Respiratory: reports: no symptoms reported Gastrointestinal: reports: nausea Neurological: reports: headache/migraines. denies: dizziness/vertigo, numbness , paresthesia All Other Systems: Reviewed and Negative Past History - Adult - PAST MEDICAL HISTORY-ADULT Review of Records: reports: Old Records Reviewed, Nursing Assessment Review, Medications Reviewed Cardiovascular: reports: HTN Respiratory: reports: asthma Neurological: reports: headaches/migraines Psychiatric: reports: anxiety Endocrine/Immune: reports: Diabetes Additional History: Frequent visits to the ER - PRIOR SURGERIES/PROCEDURES Surgical/Procedure History: reports: reviewed, not pertinent - PRIOR HOSPITALIZATIONS Prior Hospitalizations: reports: for other non-related - IMMUNIZATION STATUS Childhood Immunizations: See Nurse Assessment Flu Vaccine: See Nurse Assessment - FAMILY HISTORY Family History: reviewed, not pertinent - SOCIAL HISTORY Smoking: less than 1 pack/day Provider spent 3-5 mins advising pt. on dangers of tobacco.: Discussed manners to quit use, and f/u contacts for add'l counseling. Living Situation: family Physical Exam- Neurological - Physical Exam-Neuro Initial Vital Signs Reviewed: Yes General Appearance: alert, mild distress Eye Exam: bilateral eye: normal inspection, PERRL, EOMI HENMT: normocephalic/atraumatic, moist mucous membranes, normal ENT inspection, other (left lower molar with mild STS at gum line, no abscess at this time) Head Injury: no evidence of injury Neck: non-tender, full range of motion, supple Respiratory: chest non-tender, lungs clear, normal breath sounds Cardiovascular: regular rate, rhythm, no edema Abdominal Exam: normal bowel sounds, non tender, soft Extremity: normal gait, 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: normal hearing, normal speech, PERRL Coordination/Gait: normal gait Motor/Sensory: no motor deficit, no sensory deficit Neurologic: grossly normal, no motor/sensory deficits Integumentary: normal color, normal turgor, warm/dry Psych/Mental Status: normal thought content, normal thought process - Glascow Coma Scale Best Eye Response: (4) open spontaneously Best Verbal Response: (5) oriented Best Motor Response: (6) obeys commands Total Glascow Score: 15 Progress - PLAN OF CARE/RESULTS Progress/Plan/Lab Results: ondansetron HCl * [From Zofran] Allergy (Intermediate, Verified 11/04/16 03:32) DIZZINESS prochlorperazine maleate * [From Compazine] Allergy (Mild, Verified 11/04/16 03: 32) FLUSHING sumatriptan [From Imitrex] Allergy (Mild, Verified 11/04/16 03:32) SHORTNESS OF BREATH prochlorperazine [From Compazine] Allergy (Verified 11/04/16 03:32) Unknown prochlorperazine edisylate * [From Compazine] Allergy (Verified 11/04/16 03:32) Unknown sumatriptan succinate * [From Imitrex] Allergy (Verified 11/04/16 03:32) SHORTNESS OF BREATH Duloxetine [Cymbalta] 90 mg PO DAILY 06/02/14 Loratadine [Claritin] 10 mg PO DAILY 06/02/14 Metformin [Glucophage] 500 mg PO DAILY 06/02/14 Topiramate [Topamax] 100 mg PO BID 06/02/14 Zolmitriptan Nasal [place] [Zomig Nasal [place]] 5 mg PO BID PRN 11/29/14 Albuterol Sulfate [Albuterol Sulfate Hfa] 1 - 2 puff IH 3-4XDAY PRN PRN #1 hfa.aer.ad 08/26/15 Dapagliflozin/Metformin HCl [Xigduo Xr 10 mg-500 mg Tablet] 1 tab PO DAILY 08/01 Liraglutide [Victoza] 1 applicatn IM DAILY 08/01/16 Topiramate [Topamax] 250 mg PO BID 08/01/16 Duloxetine [Cymbalta] 90 mg PO DAILY 09/25/16 Rizatriptan Benzoate [Maxalt] 10 mg PO DAILY PRN PRN #3 tablet 11/17/16 Clindamycin [Cleocin] 300 mg PO Q6HR #60 capsule 11/23/16 Dapagliflozin/Metformin HCl [Xigduo Xr 10 mg-500 mg Tablet] 1 each PO DAILY #30 tab.bp.24h 11/23/16 Dapagliflozin/Metformin HCl [Xigduo Xr 10 mg-1,000 mg Tab] 1 each PO DAILY #30 tab.bp.24h 12/09/16 Duloxetine HCl [Cymbalta] 90 mg PO DAILY #30 capsule. 12/09/16 Duloxetine [Cymbalta] 30 mg PO DAILY #30 capsule 12/09/16 Duloxetine [Cymbalta] 60 mg PO DAILY #30 capsule 12/09/16 Liraglutide [Victoza] 1.8 mg SUBQ DAILY #5 pen.injctr 12/09/16 Hydroxyzine Pamoate [Vistaril] 25 mg PO TID PRN PRN #30 capsule 01/02/17 Orders Category Date Time Status Nalbuphine [Nubain] Med 01/04/17 13:44 Once 20 mg IM NOW ONE Promethazine [Phenergan] Med 01/04/17 13:44 Once 25 mg IM NOW ONE Departure - Departure Time of Disposition Order: 14:08 DIAGNOSIS: Tooth ache Chronic headache Qualifiers: Headache type: unspecified Intractability: not intractable Qualified Code(s): R51 - Headache Disposition: HOME 01 Certified Medical Emergency: Emergent Condition: Good Additional Instructions: ED Follow Up Instructions: You have been treated by a care provider in the Emergency Department. These instructions are being provided to you so you can have an understanding of how to care for yourself upon discharge. Upon discharge from the Emergency Department, you are responsible for making arrangements for follow-up care by a physician of your choice. Take all prescribed medications as directed. Return to the Emergency Department immediately for any new or worsening symptoms. You may call the Physician Referral phone number at [phone] to obtain a list of Physicians who are taking new patients. Prescriptions: Clindamycin [Cleocin] 300 mg PO BID #14 capsule Referrals: Washington Barlow [Primary Care Provider] - Attestation - Physician/ CARL Attestation Patient care was provided by Advanced Practice Provider:: Yes Advanced Practice Provider:: Suzan Caludio Advanced Practice Provider documentation review:: The Mid-level provider documentation, treatment plan and medical decision making was reviewed by the physician who agrees with all treatment and medical decision making by the MLP.
== END 2017-01-04 14:13 | disposition home or self-care (01) ==
LOC: P.ED 13:33
DX: R51 Headache (principal); K08.89 Other specified disorders of teeth and supporting structures; R11.0 Nausea; I10 Essential (primary) hypertension; J45.909 Unspecified asthma, uncomplicated; E11.9 Type 2 diabetes mellitus without complications; F41.9 Anxiety disorder, unspecified; F17.210 Nicotine dependence, cigarettes, uncomplicated; Z79.899 Other long term (current) drug therapy; Z71.6 Tobacco abuse counseling
CPT/HCPCS: 96372; J2300; J2550

== ENCOUNTER 2017-01-05 17:56 | Emergency (ER) ==
[2017-01-05 18:02] VITALS: BP 119/68
[2017-01-05] MEDS ORDERED: NUBAIN IM ONE (18:15)
[2017-01-05] MEDS ORDERED: PHENERGAN IM ONE (18:16)
--- NOTE | 2017-01-05 18:20 | PROVIDER DOCUMENTATION ---
HPI-Headache - General Chief Complaint: Headache Stated Complaint: HEADACHE Time Seen by Provider: 01/05/17 18:04 Source: patient Allergies/Adverse Reactions: Patient Allergies Allergy/AdvReac Type Severity Reaction Status Date / Time ondansetron HCl * Allergy Intermediate DIZZINESS Verified 01/05/17 18:02 [From Zofran] prochlorperazine maleate * Allergy Mild FLUSHING Verified 01/05/17 18:02 [From Compazine] sumatriptan [From Imitrex] Allergy Mild SHORTNESS Verified 01/05/17 18:02 OF BREATH prochlorperazine Allergy Unknown Verified 01/05/17 18:02 [From Compazine] prochlorperazine edisylate * Allergy Unknown Verified 01/05/17 18:02 [From Compazine] sumatriptan succinate * Allergy SHORTNESS Verified 01/05/17 18:02 [From Imitrex] OF BREATH Home Medications: Home Medication List Medication Instructions Recorded Confirmed Last Taken Type Duloxetine [Cymbalta] 90 mg PO DAILY 06/02/14 01/05/17 01/03/17 History Loratadine [Claritin] 10 mg PO DAILY 06/02/14 01/05/17 01/03/17 History Metformin [Glucophage] 500 mg PO DAILY 06/02/14 01/05/17 01/03/17 History Topiramate [Topamax] 100 mg PO BID 06/02/14 01/05/17 01/03/17 History Zolmitriptan Nasal [place] [Zomig 5 mg PO BID PRN 11/29/14 01/05/17 01/03/17 History Nasal [place]] Albuterol Sulfate [Albuterol 1 - 2 puff IH 3-4XDAY PRN PRN #1 08/26/15 01/05/17 01/03/17 Rx Sulfate Hfa] hfa.aer.ad Dapagliflozin/Metformin HCl 1 tab PO DAILY 08/01/16 01/05/17 01/03/17 History [Xigduo Xr 10 mg-500 mg Tablet] Liraglutide [Victoza] 1 applicatn IM DAILY 08/01/16 01/05/17 01/03/17 History Topiramate [Topamax] 250 mg PO BID 08/01/16 01/05/17 01/03/17 History Duloxetine [Cymbalta] 90 mg PO DAILY 09/25/16 01/05/17 01/03/17 History Rizatriptan Benzoate [Maxalt] 10 mg PO DAILY PRN PRN #3 tablet 11/17/1601/03/17 Rx Clindamycin [Cleocin] 300 mg PO Q6HR #60 capsule 11/23/16 01/05/17 01/03/17 Rx Dapagliflozin/Metformin HCl 1 each PO DAILY #30 tab.bp.24h 11/23/16 01/05/17 Rx [Xigduo Xr 10 mg-500 mg Tablet] Dapagliflozin/Metformin HCl 1 each PO DAILY #30 tab.bp.24h 12/09/16 01/05/17 Rx [Xigduo Xr 10 mg-1,000 mg Tab] Duloxetine HCl [Cymbalta] 90 mg PO DAILY #30 capsule. 12/09/16 01/05/17 Rx Duloxetine [Cymbalta] 30 mg PO DAILY #30 capsule 12/09/16 01/05/17 01/03/17 Rx Duloxetine [Cymbalta] 60 mg PO DAILY #30 capsule 12/09/16 01/05/17 01/03/17 Rx Liraglutide [Victoza] 1.8 mg SUBQ DAILY #5 pen.injctr 12/09/16 01/05/17 Rx Hydroxyzine Pamoate [Vistaril] 25 mg PO TID PRN PRN #30 capsule 01/02/1701/03/17 Rx Clindamycin [Cleocin] 300 mg PO BID #14 capsule 01/04/17 01/05/17 Unknown Rx - History of Present Illness-Headache Nature of Presenting Problem: 51 y/o AAF presents to the ED with a migraine that began today after being at the home of father and the stress of it all. Pt states this is like her normal headache with nausea. Denies vomiting. Headache Location: reports: frontal (left) Quality of Pain: reports: aching Severity: reports: moderate Onset/Duration: reports: this morning Timing: reports: still present Headache Context: reports: nothing Headache History: reports: chronic headaches, history of migraines Any recent trauma/injury?: reports: none Headache severity at the maximum: moderate Preceding Symptoms: reports: none Headache Exacerbated by:: reports: light Modifying Factors: improves with: vomiting Associated Symptoms: reports: headache, nausea. denies: dizziness, loss of consciousness, numbness in legs/feet, vomiting, vision changes Similar Symptoms Previously?: Yes Recently seen or treated by another doctor?: No Review of Systems - Adult - REVIEW OF SYSTEMS - ADULT Constitutional: denies: chills, fever Eyes: reports: no symptoms reported Ears, Nose, Mouth & Throat: reports: no symptoms reported Cardiovascular: reports: no symptoms reported Respiratory: reports: no symptoms reported Gastrointestinal: reports: nausea. denies: abdominal pain, vomiting Genitourinary: reports: no symptoms reported Musculoskeletal: reports: no symptoms reported Integumentary: reports: no symptoms reported Neurological: reports: headache/migraines. denies: dizziness/vertigo, seizure, slurred speech Psychiatric: reports: no symptoms reported Endocrine: reports: no symptoms reported Hematologic/Lymphatic: reports: no symptoms reported Allergic/Immunologic: reports: no symptoms reported All Other Systems: Reviewed and Negative Past History - Adult - PAST MEDICAL HISTORY-ADULT Review of Records: reports: Old Records Reviewed, Nursing Assessment Review, Medications Reviewed Cardiovascular: reports: HTN Respiratory: reports: asthma Neurological: reports: headaches/migraines Psychiatric: reports: anxiety Endocrine/Immune: reports: Diabetes Additional History: Frequent visits to the ER - PRIOR SURGERIES/PROCEDURES Surgical/Procedure History: reports: reviewed, not pertinent - PRIOR HOSPITALIZATIONS Prior Hospitalizations: reports: for other non-related - IMMUNIZATION STATUS Childhood Immunizations: See Nurse Assessment Flu Vaccine: See Nurse Assessment - FAMILY HISTORY Family History: reviewed, not pertinent - SOCIAL HISTORY Smoking: cigarettes, greater than 1 pack/day Living Situation: family Physical Exam- Neurological - Physical Exam-Neuro Initial Vital Signs Reviewed: Yes General Appearance: appears well, alert, no apparent distress Eye Exam: bilateral eye: normal inspection, PERRL HENMT: moist mucous membranes, normal ENT inspection, TMs normal, pharynx normal Head Injury: no evidence of injury. 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, normal speech, PERRL Coordination/Gait: normal finger to nose, normal gait Motor/Sensory: no motor deficit, no sensory deficit, no pronator drift Neurologic: grossly normal, no motor/sensory deficits Integumentary: normal color, normal turgor, warm/dry Psych/Mental Status: normal mood/affect, normal thought content, normal thought process Progress - PLAN OF CARE/RESULTS Progress/Plan/Lab Results: Orders Category Date Time Status Nalbuphine [Nubain] Med 01/05/17 18:15 Discontinued 20 mg IM NOW ONE Promethazine [Phenergan] Med 01/05/17 18:16 Discontinued 25 mg IM NOW ONE Vital Signs Temp Pulse Resp BP Pulse Ox 01/05/17 17:59 98.0 F 99 H 18 119/68 99 ondansetron HCl * [From Zofran] Allergy (Intermediate, Verified 01/05/17 18:02) DIZZINESS prochlorperazine maleate * [From Compazine] Allergy (Mild, Verified 01/05/17 18: 02) FLUSHING sumatriptan [From Imitrex] Allergy (Mild, Verified 01/05/17 18:02) SHORTNESS OF BREATH prochlorperazine [From Compazine] Allergy (Verified 01/05/17 18:02) Unknown prochlorperazine edisylate * [From Compazine] Allergy (Verified 01/05/17 18:02) Unknown sumatriptan succinate * [From Imitrex] Allergy (Verified 01/05/17 18:02) SHORTNESS OF BREATH Duloxetine [Cymbalta] 90 mg PO DAILY 06/02/14 Loratadine [Claritin] 10 mg PO DAILY 06/02/14 Metformin [Glucophage] 500 mg PO DAILY 06/02/14 Topiramate [Topamax] 100 mg PO BID 06/02/14 Zolmitriptan Nasal [place] [Zomig Nasal [place]] 5 mg PO BID PRN 11/29/14 Albuterol Sulfate [Albuterol Sulfate Hfa] 1 - 2 puff IH 3-4XDAY PRN PRN #1 hfa.aer.ad 08/26/15 Dapagliflozin/Metformin HCl [Xigduo Xr 10 mg-500 mg Tablet] 1 tab PO DAILY 08/01 Liraglutide [Victoza] 1 applicatn IM DAILY 08/01/16 Topiramate [Topamax] 250 mg PO BID 08/01/16 Duloxetine [Cymbalta] 90 mg PO DAILY 09/25/16 Rizatriptan Benzoate [Maxalt] 10 mg PO DAILY PRN PRN #3 tablet 11/17/16 Clindamycin [Cleocin] 300 mg PO Q6HR #60 capsule 11/23/16 Dapagliflozin/Metformin HCl [Xigduo Xr 10 mg-500 mg Tablet] 1 each PO DAILY #30 tab.bp.24h 11/23/16 Dapagliflozin/Metformin HCl [Xigduo Xr 10 mg-1,000 mg Tab] 1 each PO DAILY #30 tab.bp.24h 12/09/16 Duloxetine HCl [Cymbalta] 90 mg PO DAILY #30 capsule. 12/09/16 Duloxetine [Cymbalta] 30 mg PO DAILY #30 capsule 12/09/16 Duloxetine [Cymbalta] 60 mg PO DAILY #30 capsule 12/09/16 Liraglutide [Victoza] 1.8 mg SUBQ DAILY #5 pen.injctr 12/09/16 Hydroxyzine Pamoate [Vistaril] 25 mg PO TID PRN PRN #30 capsule 01/02/17 Clindamycin [Cleocin] 300 mg PO BID #14 capsule 01/04/17 Departure - Departure Time of Disposition Order: 00:19 DIAGNOSIS: Migraine Qualifiers: Migraine type: unspecified Status migrainosus presence: without status migrainosus Intractability: not intractable Qualified Code(s): G43.909 - Migraine, unspecified, not intractable, without status migrainosus Disposition: HOME 01 Certified Medical Emergency: Emergent Condition: Stable Additional Instructions: ED Follow Up Instructions: You have been treated by a care provider in the Emergency Department. These instructions are being provided to you so you can have an understanding of how to care for yourself upon discharge. Upon discharge from the Emergency Department, you are responsible for making arrangements for follow-up care by a physician of your choice. Take all prescribed medications as directed. Return to the Emergency Department immediately for any new or worsening symptoms. You may call the Physician Referral phone number at [phone] to obtain a list of Physicians who are taking new patients. Referrals: Washington Barlow [Primary Care Provider] - Instructions: Migraine Headache, [id number] Attestation - Scribe Verification/Attestation Scribe:: Morteza Plummer Acting as Scribe for:: Desirae Simon Scribe documention review:: This chart was documented by a scribe and accurately reflects the service the provider performed and the decisions made by the provider.
== END 2017-01-05 18:50 | disposition home or self-care (01) ==
LOC: P.ED 17:56
DX: G43.909 Migraine, unspecified, not intractable, without status migrainosus (principal); R51 Headache; R11.0 Nausea; I10 Essential (primary) hypertension; G89.29 Other chronic pain; E11.9 Type 2 diabetes mellitus without complications; J45.909 Unspecified asthma, uncomplicated; F41.9 Anxiety disorder, unspecified; Z79.899 Other long term (current) drug therapy
CPT/HCPCS: 96372; J2300; J2550

== ENCOUNTER 2017-01-07 01:03 | Emergency (ER) ==
[2017-01-07 01:13] VITALS: BP 141/069
[2017-01-07] MEDS ORDERED: NUBAIN IM ONE (01:23)
[2017-01-07] MEDS ORDERED: PHENERGAN IM ONE (01:23)
--- NOTE | 2017-01-07 01:36 | PROVIDER DOCUMENTATION ---
HPI-Neurological Disorder - General Chief Complaint: Headache Stated Complaint: HEADACHE Time Seen by Provider: 01/07/17 01:16 Source: patient Allergies/Adverse Reactions: Patient Allergies Allergy/AdvReac Type Severity Reaction Status Date / Time ondansetron HCl * Allergy Intermediate DIZZINESS Verified 01/05/17 18:02 [From Zofran] prochlorperazine maleate * Allergy Mild FLUSHING Verified 01/05/17 18:02 [From Compazine] sumatriptan [From Imitrex] Allergy Mild SHORTNESS Verified 01/05/17 18:02 OF BREATH prochlorperazine Allergy Unknown Verified 01/05/17 18:02 [From Compazine] prochlorperazine edisylate * Allergy Unknown Verified 01/05/17 18:02 [From Compazine] sumatriptan succinate * Allergy SHORTNESS Verified 01/05/17 18:02 [From Imitrex] OF BREATH Home Medications: Home Medication List Medication Instructions Recorded Confirmed Last Taken Type Duloxetine [Cymbalta] 90 mg PO DAILY 06/02/14 01/05/17 01/03/17 History Loratadine [Claritin] 10 mg PO DAILY 06/02/14 01/05/17 01/03/17 History Metformin [Glucophage] 500 mg PO DAILY 06/02/14 01/05/17 01/03/17 History Topiramate [Topamax] 100 mg PO BID 06/02/14 01/05/17 01/03/17 History Zolmitriptan Nasal [place] [Zomig 5 mg PO BID PRN 11/29/14 01/05/17 01/03/17 History Nasal [place]] Albuterol Sulfate [Albuterol 1 - 2 puff IH 3-4XDAY PRN PRN #1 08/26/15 01/05/17 01/03/17 Rx Sulfate Hfa] hfa.aer.ad Dapagliflozin/Metformin HCl 1 tab PO DAILY 08/01/16 01/05/17 01/03/17 History [Xigduo Xr 10 mg-500 mg Tablet] Liraglutide [Victoza] 1 applicatn IM DAILY 08/01/16 01/05/17 01/03/17 History Topiramate [Topamax] 250 mg PO BID 08/01/16 01/05/17 01/03/17 History Duloxetine [Cymbalta] 90 mg PO DAILY 09/25/16 01/05/17 01/03/17 History Rizatriptan Benzoate [Maxalt] 10 mg PO DAILY PRN PRN #3 tablet 11/17/1601/03/17 Rx Clindamycin [Cleocin] 300 mg PO Q6HR #60 capsule 11/23/16 01/05/17 01/03/17 Rx Dapagliflozin/Metformin HCl 1 each PO DAILY #30 tab.bp.24h 11/23/16 01/05/17 Rx [Xigduo Xr 10 mg-500 mg Tablet] Dapagliflozin/Metformin HCl 1 each PO DAILY #30 tab.bp.24h 12/09/16 01/05/17 Rx [Xigduo Xr 10 mg-1,000 mg Tab] Duloxetine HCl [Cymbalta] 90 mg PO DAILY #30 capsule. 12/09/16 01/05/17 Rx Duloxetine [Cymbalta] 30 mg PO DAILY #30 capsule 12/09/16 01/05/17 01/03/17 Rx Duloxetine [Cymbalta] 60 mg PO DAILY #30 capsule 12/09/16 01/05/17 01/03/17 Rx Liraglutide [Victoza] 1.8 mg SUBQ DAILY #5 pen.injctr 12/09/16 01/05/17 Rx Hydroxyzine Pamoate [Vistaril] 25 mg PO TID PRN PRN #30 capsule 01/02/1701/03/17 Rx Clindamycin [Cleocin] 300 mg PO BID #14 capsule 01/04/17 01/05/17 Unknown Rx - History of Present Illness-Neuro Headache Location: reports: frontal Severity: reports: mild Onset/Duration: reports: 24 hours ago Timing: reports: still present Context: reports: none Any recent trauma/injury?: reports: none New weakness or altered sensation location:: reports: none Cognitive Baseline: alert, oriented x3 Gait Baseline: walks without assistance Associated Symptoms: denies: nausea, vomiting Similar Symptoms Previously?: Yes Recently seen or treated by another doctor?: No Review of Systems - Adult - REVIEW OF SYSTEMS - ADULT Constitutional: denies: chills, fever, fatique Ears, Nose, Mouth & Throat: denies: ear pain, mouth/dental pain, throat pain Cardiovascular: denies: chest pain, irregular heart rate, palpitations Respiratory: denies: cough, shortness of breath, wheezing Gastrointestinal: denies: abdominal pain, diarrhea, nausea, vomiting Genitourinary: denies: dysuria, flank pain, hematuria Musculoskeletal: denies: back pain, neck pain Integumentary: denies: hives, itching, rash Neurological: reports: headache/migraines. denies: numbness, syncope Psychiatric: denies: anxiety, emotional problems, suicidal thoughts All Other Systems: Reviewed and Negative Past History - Adult - PAST MEDICAL HISTORY-ADULT Review of Records: reports: Old Records Reviewed, Nursing Assessment Review, Medications Reviewed Cardiovascular: reports: HTN Respiratory: reports: asthma Neurological: reports: headaches/migraines Psychiatric: reports: anxiety Endocrine/Immune: reports: Diabetes Additional History: Frequent visits to the ER - PRIOR SURGERIES/PROCEDURES Surgical/Procedure History: reports: reviewed, not pertinent - PRIOR HOSPITALIZATIONS Prior Hospitalizations: reports: for other non-related - IMMUNIZATION STATUS Childhood Immunizations: See Nurse Assessment Flu Vaccine: See Nurse Assessment - SOCIAL HISTORY Living Situation: family Physical Exam- Neurological - Physical Exam-Neuro Initial Vital Signs Reviewed: Yes General Appearance: appears well, alert, no apparent distress Eye Exam: bilateral eye: normal inspection, PERRL, EOMI HENMT: normocephalic/atraumatic, moist mucous membranes, normal ENT inspection, TMs normal, pharynx normal Head Injury: no evidence of injury Neck: non-tender, full range of motion, supple, normal inspection Respiratory: chest non-tender, lungs clear, normal breath sounds, no pleuratic chest pain, no respiratory distress, no accessory muscle use Cardiovascular: normal peripheral pulses, regular rate, rhythm, no edema, no gallop, no JVD, no murmur Abdominal Exam: normal bowel sounds, non tender, soft, no organomegaly, no pulsatile mass Lymphatic: no adenopathy Extremity: 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, non-tender, normal gait, normal inspection, no pedal edema, no calf tenderness, 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 Exam: normal hearing, normal speech, PERRL Coordination/Gait: normal finger to nose, normal gait, negative Romberg's sign Motor/Sensory: no motor deficit, no sensory deficit, no pronator drift, negative Babinski's sign Integumentary: normal color, normal turgor, warm/dry Psych/Mental Status: normal mood/affect, normal thought content, normal thought process, oriented x 3 - Glascow Coma Scale Best Eye Response: (4) open spontaneously Best Verbal Response: (5) oriented Best Motor Response: (5) localizes to pain Total Glascow Score: 15 Departure - Departure Time of Disposition Order: 01:39 DIAGNOSIS: Headache Qualifiers: Headache type: unspecified Headache chronicity pattern: episodic headache Intractability: not intractable Qualified Code(s): R51 - Headache Disposition: HOME 01 Certified Medical Emergency: Emergent Condition: Good Additional Instructions: ED Follow Up Instructions: You have been treated by a care provider in the Emergency Department. These instructions are being provided to you so you can have an understanding of how to care for yourself upon discharge. Upon discharge from the Emergency Department, you are responsible for making arrangements for follow-up care by a physician of your choice. Take all prescribed medications as directed. Return to the Emergency Department immediately for any new or worsening symptoms. You may call the Physician Referral phone number at [phone] to obtain a list of Physicians who are taking new patients. Instructions: Migraine Headache, [id number] Attestation - Scribe Verification/Attestation Scribe:: Jam Larsen Acting as Scribe for:: Justo Hernández Scribe documention review:: This chart was documented by a scribe and accurately reflects the service the provider performed and the decisions made by the provider.
== END 2017-01-07 01:52 | disposition home or self-care (01) ==
LOC: P.ED 01:03
DX: R51 Headache (principal); I10 Essential (primary) hypertension; E11.9 Type 2 diabetes mellitus without complications; J45.909 Unspecified asthma, uncomplicated; F41.9 Anxiety disorder, unspecified; Z79.899 Other long term (current) drug therapy
CPT/HCPCS: J2300; J2550

== ENCOUNTER 2017-01-08 13:55 | Emergency (ER) ==
[2017-01-08 14:07] VITALS: BP 134/67
[2017-01-08] MEDS ORDERED: NUBAIN IM ONE (14:08)
[2017-01-08] MEDS ORDERED: PHENERGAN IM ONE (14:08)
--- NOTE | 2017-01-08 14:10 | PROVIDER DOCUMENTATION ---
HPI-Headache - General Chief Complaint: Headache Stated Complaint: HEADACHE Time Seen by Provider: 01/08/17 14:02 Allergies/Adverse Reactions: Patient Allergies Allergy/AdvReac Type Severity Reaction Status Date / Time ondansetron HCl * Allergy Intermediate DIZZINESS Verified 01/05/17 18:02 [From Zofran] prochlorperazine maleate * Allergy Mild FLUSHING Verified 01/05/17 18:02 [From Compazine] sumatriptan [From Imitrex] Allergy Mild SHORTNESS Verified 01/05/17 18:02 OF BREATH prochlorperazine Allergy Unknown Verified 01/05/17 18:02 [From Compazine] prochlorperazine edisylate * Allergy Unknown Verified 01/05/17 18:02 [From Compazine] sumatriptan succinate * Allergy SHORTNESS Verified 01/05/17 18:02 [From Imitrex] OF BREATH Home Medications: Home Medication List Medication Instructions Recorded Confirmed Last Taken Type Duloxetine [Cymbalta] 90 mg PO DAILY 06/02/14 01/05/17 01/03/17 History Loratadine [Claritin] 10 mg PO DAILY 06/02/14 01/05/17 01/03/17 History Metformin [Glucophage] 500 mg PO DAILY 06/02/14 01/05/17 01/03/17 History Topiramate [Topamax] 100 mg PO BID 06/02/14 01/05/17 01/03/17 History Zolmitriptan Nasal [place] [Zomig 5 mg PO BID PRN 11/29/14 01/05/17 01/03/17 History Nasal [place]] Albuterol Sulfate [Albuterol 1 - 2 puff IH 3-4XDAY PRN PRN #1 08/26/15 01/05/17 01/03/17 Rx Sulfate Hfa] hfa.aer.ad Dapagliflozin/Metformin HCl 1 tab PO DAILY 08/01/16 01/05/17 01/03/17 History [Xigduo Xr 10 mg-500 mg Tablet] Liraglutide [Victoza] 1 applicatn IM DAILY 08/01/16 01/05/17 01/03/17 History Topiramate [Topamax] 250 mg PO BID 08/01/16 01/05/17 01/03/17 History Duloxetine [Cymbalta] 90 mg PO DAILY 09/25/16 01/05/17 01/03/17 History Rizatriptan Benzoate [Maxalt] 10 mg PO DAILY PRN PRN #3 tablet 11/17/1601/03/17 Rx Clindamycin [Cleocin] 300 mg PO Q6HR #60 capsule 11/23/16 01/05/17 01/03/17 Rx Dapagliflozin/Metformin HCl 1 each PO DAILY #30 tab.bp.24h 11/23/16 01/05/17 Rx [Xigduo Xr 10 mg-500 mg Tablet] Dapagliflozin/Metformin HCl 1 each PO DAILY #30 tab.bp.24h 12/09/16 01/05/17 Rx [Xigduo Xr 10 mg-1,000 mg Tab] Duloxetine HCl [Cymbalta] 90 mg PO DAILY #30 capsule. 12/09/16 01/05/17 Rx Duloxetine [Cymbalta] 30 mg PO DAILY #30 capsule 12/09/16 01/05/17 01/03/17 Rx Duloxetine [Cymbalta] 60 mg PO DAILY #30 capsule 12/09/16 01/05/17 01/03/17 Rx Liraglutide [Victoza] 1.8 mg SUBQ DAILY #5 pen.injctr 12/09/16 01/05/17 Rx Hydroxyzine Pamoate [Vistaril] 25 mg PO TID PRN PRN #30 capsule 01/02/1701/03/17 Rx Clindamycin [Cleocin] 300 mg PO BID #14 capsule 01/04/17 01/05/17 Unknown Rx Past History - Adult - PAST MEDICAL HISTORY-ADULT Cardiovascular: reports: HTN Respiratory: reports: asthma Neurological: reports: headaches/migraines Psychiatric: reports: anxiety Endocrine/Immune: reports: Diabetes Additional History: Frequent visits to the ER - PRIOR SURGERIES/PROCEDURES Surgical/Procedure History: reports: reviewed, not pertinent - PRIOR HOSPITALIZATIONS Prior Hospitalizations: reports: for other non-related - IMMUNIZATION STATUS Childhood Immunizations: See Nurse Assessment Flu Vaccine: See Nurse Assessment Departure - Departure Time of Disposition Order: 14:09 DIAGNOSIS: Chronic headache Qualifiers: Headache type: unspecified Intractability: not intractable Qualified Code(s): R51 - Headache Disposition: HOME 01 Certified Medical Emergency: Urgent Condition: Good Additional Instructions: Follow up with your primary care provider. ED Follow Up Instructions: You have been treated by a care provider in the Emergency Department. These instructions are being provided to you so you can have an understanding of how to care for yourself upon discharge. Upon discharge from the Emergency Department, you are responsible for making arrangements for follow-up care by a physician of your choice. Take all prescribed medications as directed. Return to the Emergency Department immediately for any new or worsening symptoms. You may call the Physician Referral phone number at [phone] to obtain a list of Physicians who are taking new patients. Attestation - Physician/ CARL Attestation Patient care was provided by Advanced Practice Provider:: Yes Advanced Practice Provider:: Dick Collins Advanced Practice Provider documentation review:: The Mid-level provider documentation, treatment plan and medical decision making was reviewed by the physician who agrees with all treatment and medical decision making by the MLP.
--- NOTE | 2017-01-08 14:13 | PROVIDER DOCUMENTATION ---
HPI-Headache - General Chief Complaint: Headache Stated Complaint: HEADACHE Time Seen by Provider: 01/08/17 14:02 Source: patient Allergies/Adverse Reactions: Patient Allergies Allergy/AdvReac Type Severity Reaction Status Date / Time ondansetron HCl * Allergy Intermediate DIZZINESS Verified 01/05/17 18:02 [From Zofran] prochlorperazine maleate * Allergy Mild FLUSHING Verified 01/05/17 18:02 [From Compazine] sumatriptan [From Imitrex] Allergy Mild SHORTNESS Verified 01/05/17 18:02 OF BREATH prochlorperazine Allergy Unknown Verified 01/05/17 18:02 [From Compazine] prochlorperazine edisylate * Allergy Unknown Verified 01/05/17 18:02 [From Compazine] sumatriptan succinate * Allergy SHORTNESS Verified 01/05/17 18:02 [From Imitrex] OF BREATH Home Medications: Home Medication List Medication Instructions Recorded Confirmed Last Taken Type Duloxetine [Cymbalta] 90 mg PO DAILY 06/02/14 01/05/17 01/03/17 History Loratadine [Claritin] 10 mg PO DAILY 06/02/14 01/05/17 01/03/17 History Metformin [Glucophage] 500 mg PO DAILY 06/02/14 01/05/17 01/03/17 History Topiramate [Topamax] 100 mg PO BID 06/02/14 01/05/17 01/03/17 History Zolmitriptan Nasal [place] [Zomig 5 mg PO BID PRN 11/29/14 01/05/17 01/03/17 History Nasal [place]] Albuterol Sulfate [Albuterol 1 - 2 puff IH 3-4XDAY PRN PRN #1 08/26/15 01/05/17 01/03/17 Rx Sulfate Hfa] hfa.aer.ad Dapagliflozin/Metformin HCl 1 tab PO DAILY 08/01/16 01/05/17 01/03/17 History [Xigduo Xr 10 mg-500 mg Tablet] Liraglutide [Victoza] 1 applicatn IM DAILY 08/01/16 01/05/17 01/03/17 History Topiramate [Topamax] 250 mg PO BID 08/01/16 01/05/17 01/03/17 History Duloxetine [Cymbalta] 90 mg PO DAILY 09/25/16 01/05/17 01/03/17 History Rizatriptan Benzoate [Maxalt] 10 mg PO DAILY PRN PRN #3 tablet 11/17/1601/03/17 Rx Clindamycin [Cleocin] 300 mg PO Q6HR #60 capsule 11/23/16 01/05/17 01/03/17 Rx Dapagliflozin/Metformin HCl 1 each PO DAILY #30 tab.bp.24h 11/23/16 01/05/17 Rx [Xigduo Xr 10 mg-500 mg Tablet] Dapagliflozin/Metformin HCl 1 each PO DAILY #30 tab.bp.24h 12/09/16 01/05/17 Rx [Xigduo Xr 10 mg-1,000 mg Tab] Duloxetine HCl [Cymbalta] 90 mg PO DAILY #30 capsule. 12/09/16 01/05/17 Rx Duloxetine [Cymbalta] 30 mg PO DAILY #30 capsule 12/09/16 01/05/17 01/03/17 Rx Duloxetine [Cymbalta] 60 mg PO DAILY #30 capsule 12/09/16 01/05/17 01/03/17 Rx Liraglutide [Victoza] 1.8 mg SUBQ DAILY #5 pen.injctr 12/09/16 01/05/17 Rx Hydroxyzine Pamoate [Vistaril] 25 mg PO TID PRN PRN #30 capsule 01/02/1701/03/17 Rx Clindamycin [Cleocin] 300 mg PO BID #14 capsule 01/04/17 01/05/17 Unknown Rx - History of Present Illness-Headache Nature of Presenting Problem: Pt is 51 y/o F presents to the ED with HARRELL. Pt states HARRELL has been presents for three days. Pt denies N/V/D. Headache Location: reports: global Quality of Pain: reports: aching Severity: reports: mild Onset/Duration: reports: 3 days ago Timing: reports: still present, intermittent Headache Context: reports: nothing Headache History: reports: frequent headaches, history of migraines Any recent trauma/injury?: reports: none Headache severity at the maximum: mild Headache Exacerbated by:: reports: nothing Modifying Factors: improves with: nothing Associated Symptoms: reports: headache. denies: short of breath, decreased ability to walk or stand, fainting, dizziness, confusion, chest pain, neck/back pain, fatigue, fever/chills, insomnia, loss of consciousness, muscle spasms, nausea, numbness in legs/feet, paresthesia, diaphoretic, ringing in ears, seizures, sleepy, slurred speech, tingling in legs/feet, trouble walking, vomiting, vision changes, weakness Similar Symptoms Previously?: Yes Recently seen or treated by another doctor?: No Review of Systems - Adult - REVIEW OF SYSTEMS - ADULT Constitutional: denies: chills, fever Eyes: denies: blurred vision, double vision Ears, Nose, Mouth & Throat: denies: ear pain, nose pain, throat pain Cardiovascular: reports: irregular heart rate (tachy). denies: chest pain, heart murmur Respiratory: denies: cough, shortness of breath, wheezing Gastrointestinal: denies: abdominal pain, diarrhea, nausea, vomiting Genitourinary: denies: dysuria, hematuria Musculoskeletal: denies: bone pain, joint pain, neck pain Integumentary: denies: hives, itching Neurological: reports: headache/migraines. denies: dizziness/vertigo Psychiatric: reports: no symptoms reported Endocrine: reports: no symptoms reported Hematologic/Lymphatic: reports: no symptoms reported Allergic/Immunologic: reports: no symptoms reported All Other Systems: Reviewed and Negative Past History - Adult - PAST MEDICAL HISTORY-ADULT Review of Records: reports: Nursing Assessment Review, Medications Reviewed, Social history reviewed & non-contributory. Major Childhood Illnesses: reports: denies history Cardiovascular: reports: HTN Respiratory: reports: asthma Gastrointestinal: reports: denies history Obstetrical/Gynecological: reports: denies history Genitourinary: reports: denies history Musculoskeletal: reports: denies history Neurological: reports: headaches/migraines Psychiatric: reports: anxiety Endocrine/Immune: reports: Diabetes Other Conditions: reports: denies history Additional History: Frequent visits to the ER - PRIOR SURGERIES/PROCEDURES Surgical/Procedure History: reports: reviewed, not pertinent - PRIOR HOSPITALIZATIONS Prior Hospitalizations: reports: for other non-related - IMMUNIZATION STATUS Childhood Immunizations: See Nurse Assessment Flu Vaccine: See Nurse Assessment - FAMILY HISTORY Family History: reviewed, not pertinent - SOCIAL HISTORY Smoking: cigarettes, less than 1 pack/day Provider spent 3-5 mins advising pt. on dangers of tobacco.: Discussed manners to quit use, and f/u contacts for add'l counseling. Substance Use: alcohol Living Situation: family Physical Exam- Neurological - Physical Exam-Neuro Initial Vital Signs Reviewed: Yes General Appearance: appears well, alert, no apparent distress Eye Exam: bilateral eye: normal inspection, PERRL, EOMI HENMT: normocephalic/atraumatic, moist mucous membranes, normal ENT inspection, TMs normal, pharynx normal Head Injury: no evidence of injury Neck: non-tender, full range of motion, supple, normal inspection Respiratory: chest non-tender, lungs clear, normal breath sounds, no pleuratic chest pain, no respiratory distress, no accessory muscle use Cardiovascular: normal peripheral pulses, no edema, no gallop, no JVD, no murmur , tachycardia Abdominal Exam: normal bowel sounds, non tender, soft, no organomegaly, no pulsatile mass Lymphatic: no adenopathy Extremity: 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, non-tender, normal gait, normal inspection, no pedal edema, no calf tenderness, 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 Exam: normal hearing, normal speech, PERRL Coordination/Gait: normal finger to nose, normal gait Motor/Sensory: no motor deficit, no sensory deficit, no pronator drift Neurologic: employee training specialist II-XII nml as tested, grossly normal, no motor/sensory deficits Integumentary: normal color, normal turgor, warm/dry Psych/Mental Status: normal mood/affect, normal thought content, normal thought process, oriented x 3 Progress - PLAN OF CARE/RESULTS Progress/Plan/Lab Results: Orders Category Date Time Status Nalbuphine [Nubain] Med 01/08/17 14:08 Discontinued 20 mg IM NOW ONE Promethazine [Phenergan] Med 01/08/17 14:08 Discontinued 12.5 mg IM NOW ONE Vital Signs - 24 hr 01/08/17 14:03 Temperature 97.3 F L Pulse Rate 105 H Respiratory 18 Rate Blood Pressure 134/67 O2 Sat by Pulse 100 Oximetry Departure - Departure Time of Disposition Order: 14:45 DIAGNOSIS: Chronic headache Qualifiers: Headache type: unspecified Intractability: not intractable Qualified Code(s): R51 - Headache Disposition: HOME 01 Certified Medical Emergency: Emergent Condition: Good Additional Instructions: Follow up with your primary care provider. ED Follow Up Instructions: You have been treated by a care provider in the Emergency Department. These instructions are being provided to you so you can have an understanding of how to care for yourself upon discharge. Upon discharge from the Emergency Department, you are responsible for making arrangements for follow-up care by a physician of your choice. Take all prescribed medications as directed. Return to the Emergency Department immediately for any new or worsening symptoms. You may call the Physician Referral phone number at [phone] to obtain a list of Physicians who are taking new patients. Referrals: Washington Barlow [Primary Care Provider] - Instructions: Headache, FAQs Attestation - Scribe Verification/Attestation Scribe:: Shelly Mercedes Acting as Scribe for:: Dick Collins Scribe documention review:: This chart was documented by a scribe and accurately reflects the service the provider performed and the decisions made by the provider.
== END 2017-01-08 14:45 | disposition home or self-care (01) ==
LOC: P.ED 13:55
DX: R51 Headache (principal); R00.0 Tachycardia, unspecified; I10 Essential (primary) hypertension; E11.9 Type 2 diabetes mellitus without complications; J45.909 Unspecified asthma, uncomplicated; F41.9 Anxiety disorder, unspecified; F17.210 Nicotine dependence, cigarettes, uncomplicated; Z71.6 Tobacco abuse counseling; Z79.899 Other long term (current) drug therapy
CPT/HCPCS: 96372; J2300; J2550

== ENCOUNTER 2017-01-10 18:25 | Emergency (ER) ==
[2017-01-10 18:52] VITALS: BP 137/80
[2017-01-10] MEDS ORDERED: PHENERGAN IM ONE (19:30)
[2017-01-10] MEDS ORDERED: NUBAIN IM ONE (19:30)
--- NOTE | 2017-01-10 19:36 | PROVIDER DOCUMENTATION ---
HPI-Headache - General Chief Complaint: Headache Stated Complaint: HEADACHE Time Seen by Provider: 01/10/17 19:26 Source: patient Allergies/Adverse Reactions: Patient Allergies Allergy/AdvReac Type Severity Reaction Status Date / Time ondansetron HCl * Allergy Intermediate DIZZINESS Verified 01/05/17 18:02 [From Zofran] prochlorperazine maleate * Allergy Mild FLUSHING Verified 01/05/17 18:02 [From Compazine] sumatriptan [From Imitrex] Allergy Mild SHORTNESS Verified 01/05/17 18:02 OF BREATH prochlorperazine Allergy Unknown Verified 01/05/17 18:02 [From Compazine] prochlorperazine edisylate * Allergy Unknown Verified 01/05/17 18:02 [From Compazine] sumatriptan succinate * Allergy SHORTNESS Verified 01/05/17 18:02 [From Imitrex] OF BREATH Home Medications: Home Medication List Medication Instructions Recorded Confirmed Last Taken Type Duloxetine [Cymbalta] 90 mg PO DAILY 06/02/14 01/05/17 01/03/17 History Loratadine [Claritin] 10 mg PO DAILY 06/02/14 01/05/17 01/03/17 History Metformin [Glucophage] 500 mg PO DAILY 06/02/14 01/05/17 01/03/17 History Topiramate [Topamax] 100 mg PO BID 06/02/14 01/05/17 01/03/17 History Zolmitriptan Nasal [place] [Zomig 5 mg PO BID PRN 11/29/14 01/05/17 01/03/17 History Nasal [place]] Albuterol Sulfate [Albuterol 1 - 2 puff IH 3-4XDAY PRN PRN #1 08/26/15 01/05/17 01/03/17 Rx Sulfate Hfa] hfa.aer.ad Dapagliflozin/Metformin HCl 1 tab PO DAILY 08/01/16 01/05/17 01/03/17 History [Xigduo Xr 10 mg-500 mg Tablet] Liraglutide [Victoza] 1 applicatn IM DAILY 08/01/16 01/05/17 01/03/17 History Topiramate [Topamax] 250 mg PO BID 08/01/16 01/05/17 01/03/17 History Duloxetine [Cymbalta] 90 mg PO DAILY 09/25/16 01/05/17 01/03/17 History Rizatriptan Benzoate [Maxalt] 10 mg PO DAILY PRN PRN #3 tablet 11/17/1601/03/17 Rx Clindamycin [Cleocin] 300 mg PO Q6HR #60 capsule 11/23/16 01/05/17 01/03/17 Rx Dapagliflozin/Metformin HCl 1 each PO DAILY #30 tab.bp.24h 11/23/16 01/05/17 Rx [Xigduo Xr 10 mg-500 mg Tablet] Dapagliflozin/Metformin HCl 1 each PO DAILY #30 tab.bp.24h 12/09/16 01/05/17 Rx [Xigduo Xr 10 mg-1,000 mg Tab] Duloxetine HCl [Cymbalta] 90 mg PO DAILY #30 capsule. 12/09/16 01/05/17 Rx Duloxetine [Cymbalta] 30 mg PO DAILY #30 capsule 12/09/16 01/05/17 01/03/17 Rx Duloxetine [Cymbalta] 60 mg PO DAILY #30 capsule 12/09/16 01/05/17 01/03/17 Rx Liraglutide [Victoza] 1.8 mg SUBQ DAILY #5 pen.injctr 12/09/16 01/05/17 Rx Hydroxyzine Pamoate [Vistaril] 25 mg PO TID PRN PRN #30 capsule 01/02/1701/03/17 Rx Clindamycin [Cleocin] 300 mg PO BID #14 capsule 01/04/17 01/05/17 Unknown Rx - History of Present Illness-Headache Nature of Presenting Problem: This pt, who has chronic migraines, presents today c complaints of HARRELL. This is typical from all of her previous episodes. No other issues or complaints. Headache Location: reports: global Quality of Pain: reports: aching Severity: reports: mild Onset/Duration: reports: just prior to arrival Timing: reports: still present Headache History: reports: history of migraines Any recent trauma/injury?: reports: none Headache severity at the maximum: moderate Modifying Factors: improves with: nothing Similar Symptoms Previously?: Yes Recently seen or treated by another doctor?: Yes Review of Systems - Adult - REVIEW OF SYSTEMS - ADULT Constitutional: reports: no symptoms reported. denies: chills, fever Eyes: reports: no symptoms reported. denies: discharge, dry eyes Ears, Nose, Mouth & Throat: reports: no symptoms reported. denies: ear discharge, ear pain Cardiovascular: reports: no symptoms reported. denies: chest pain, edema Respiratory: reports: no symptoms reported. denies: chronic cough, cough Gastrointestinal: reports: no symptoms reported. denies: abdominal pain, hematemesis Genitourinary: reports: no symptoms reported. denies: dysuria, discharge Musculoskeletal: reports: no symptoms reported. denies: bone pain, back pain Integumentary: reports: no symptoms reported. denies: hives, hair loss Neurological: reports: headache/migraines. denies: ataxia, dizziness/vertigo Psychiatric: reports: no symptoms reported. denies: anxiety, anti-depressant use Endocrine: reports: no symptoms reported Hematologic/Lymphatic: reports: no symptoms reported Allergic/Immunologic: reports: no symptoms reported All Other Systems: Reviewed and Negative Past History - Adult - PAST MEDICAL HISTORY-ADULT Review of Records: reports: Old Records Reviewed, Nursing Assessment Review, Medications Reviewed, Social history reviewed & non-contributory. Major Childhood Illnesses: reports: denies history Cardiovascular: reports: HTN Respiratory: reports: asthma Gastrointestinal: reports: denies history Obstetrical/Gynecological: reports: denies history Genitourinary: reports: denies history Musculoskeletal: reports: denies history Neurological: reports: headaches/migraines Psychiatric: reports: anxiety Endocrine/Immune: reports: Diabetes Other Conditions: reports: denies history Additional History: Frequent visits to the ER - PRIOR SURGERIES/PROCEDURES Surgical/Procedure History: reports: reviewed, not pertinent - PRIOR HOSPITALIZATIONS Prior Hospitalizations: reports: for other non-related - IMMUNIZATION STATUS Childhood Immunizations: See Nurse Assessment Flu Vaccine: See Nurse Assessment - FAMILY HISTORY Family History: reviewed, not pertinent Physical Exam- Neurological - Physical Exam-Neuro Initial Vital Signs Reviewed: Yes General Appearance: appears well, alert, no apparent distress Eye Exam: bilateral eye: normal inspection, PERRL, EOMI HENMT: normocephalic/atraumatic, moist mucous membranes, normal ENT inspection Head Injury: no evidence of injury Neck: non-tender, full range of motion, supple, normal inspection Respiratory: chest non-tender, lungs clear, normal breath sounds, no pleuratic chest pain, no respiratory distress, no accessory muscle use Cardiovascular: normal peripheral pulses, regular rate, rhythm, no edema, no gallop, no JVD, no murmur Abdominal Exam: normal bowel sounds, non tender, soft Extremity: 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, non-tender, 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 negative: abnormal speech, facial asymmetry, facial droop, facial paresthesias, facial weakness, gaze palsy , tongue deviation to R, tongue deviation to L Motor/Sensory: no motor deficit, no sensory deficit. negative: sensory deficit , weak motor strength RUE, weak motor strength LUE, weak motor strength RLE, weak motor strength LLE Neurologic: grossly normal, no motor/sensory deficits. negative: facial droop, focal weakness, motor weakness, sensory deficit Integumentary: normal color Psych/Mental Status: normal mood/affect, normal thought content, normal thought process, oriented x 3 Progress - PLAN OF CARE/RESULTS Progress/Plan/Lab Results: Orders Category Date Time Status Nalbuphine [Nubain] Med 01/10/17 19:30 Discontinued 20 mg IM NOW ONE Promethazine [Phenergan] Med 01/10/17 19:30 Discontinued 12.5 mg IM NOW ONE Vital Signs Temp Pulse Resp BP Pulse Ox 01/10/17 18:49 98 F 105 H 18 137/80 99 ondansetron HCl * [From Zofran] Allergy (Intermediate, Verified 01/05/17 18:02) DIZZINESS prochlorperazine maleate * [From Compazine] Allergy (Mild, Verified 01/05/17 18: 02) FLUSHING sumatriptan [From Imitrex] Allergy (Mild, Verified 01/05/17 18:02) SHORTNESS OF BREATH prochlorperazine [From Compazine] Allergy (Verified 01/05/17 18:02) Unknown prochlorperazine edisylate * [From Compazine] Allergy (Verified 01/05/17 18:02) Unknown sumatriptan succinate * [From Imitrex] Allergy (Verified 01/05/17 18:02) SHORTNESS OF BREATH Duloxetine [Cymbalta] 90 mg PO DAILY 06/02/14 Loratadine [Claritin] 10 mg PO DAILY 06/02/14 Metformin [Glucophage] 500 mg PO DAILY 06/02/14 Topiramate [Topamax] 100 mg PO BID 06/02/14 Zolmitriptan Nasal [place] [Zomig Nasal [place]] 5 mg PO BID PRN 11/29/14 Albuterol Sulfate [Albuterol Sulfate Hfa] 1 - 2 puff IH 3-4XDAY PRN PRN #1 hfa.aer.ad 08/26/15 Dapagliflozin/Metformin HCl [Xigduo Xr 10 mg-500 mg Tablet] 1 tab PO DAILY 08/01 Liraglutide [Victoza] 1 applicatn IM DAILY 08/01/16 Topiramate [Topamax] 250 mg PO BID 08/01/16 Duloxetine [Cymbalta] 90 mg PO DAILY 09/25/16 Rizatriptan Benzoate [Maxalt] 10 mg PO DAILY PRN PRN #3 tablet 11/17/16 Clindamycin [Cleocin] 300 mg PO Q6HR #60 capsule 11/23/16 Dapagliflozin/Metformin HCl [Xigduo Xr 10 mg-500 mg Tablet] 1 each PO DAILY #30 tab.bp.24h 11/23/16 Dapagliflozin/Metformin HCl [Xigduo Xr 10 mg-1,000 mg Tab] 1 each PO DAILY #30 tab.bp.24h 12/09/16 Duloxetine HCl [Cymbalta] 90 mg PO DAILY #30 capsule. 12/09/16 Duloxetine [Cymbalta] 30 mg PO DAILY #30 capsule 12/09/16 Duloxetine [Cymbalta] 60 mg PO DAILY #30 capsule 12/09/16 Liraglutide [Victoza] 1.8 mg SUBQ DAILY #5 pen.injctr 12/09/16 Hydroxyzine Pamoate [Vistaril] 25 mg PO TID PRN PRN #30 capsule 01/02/17 Clindamycin [Cleocin] 300 mg PO BID #14 capsule 01/04/17 Departure - Departure Time of Disposition Order: 19:36 DIAGNOSIS: Chronic headache Qualifiers: Headache type: unspecified Intractability: not intractable Qualified Code(s): R51 - Headache Disposition: HOME 01 Certified Medical Emergency: Urgent Condition: Good Additional Instructions: Follow up with your primary care provider. ED Follow Up Instructions: You have been treated by a care provider in the Emergency Department. These instructions are being provided to you so you can have an understanding of how to care for yourself upon discharge. Upon discharge from the Emergency Department, you are responsible for making arrangements for follow-up care by a physician of your choice. Take all prescribed medications as directed. Return to the Emergency Department immediately for any new or worsening symptoms. You may call the Physician Referral phone number at [phone] to obtain a list of Physicians who are taking new patients. Attestation - Physician/ CARL Attestation Patient care was provided by Advanced Practice Provider:: Yes Advanced Practice Provider:: Dick Collins Advanced Practice Provider documentation review:: The Mid-level provider documentation, treatment plan and medical decision making was reviewed by the physician who agrees with all treatment and medical decision making by the MLP.
== END 2017-01-10 19:42 | disposition home or self-care (01) ==
LOC: P.ED 18:25
DX: R51 Headache (principal); I10 Essential (primary) hypertension; J45.909 Unspecified asthma, uncomplicated; E11.9 Type 2 diabetes mellitus without complications; F41.9 Anxiety disorder, unspecified; Z79.899 Other long term (current) drug therapy
CPT/HCPCS: J2300; J2550

== ENCOUNTER → 2017-01-11 | Emergency (ER) ==
[~2017-01-11] MED LIST: NUBAIN IM ONE; PHENERGAN IM ONE
[2017-01-11 14:41] VITALS: BP 139/77
--- NOTE | 2017-01-11 15:29 | PROVIDER DOCUMENTATION ---
HPI-Headache - General Chief Complaint: Headache Stated Complaint: HEADACHE Allergies/Adverse Reactions: Patient Allergies Allergy/AdvReac Type Severity Reaction Status Date / Time ondansetron HCl * Allergy Intermediate DIZZINESS Verified 01/05/17 18:02 [From Zofran] prochlorperazine maleate * Allergy Mild FLUSHING Verified 01/05/17 18:02 [From Compazine] sumatriptan [From Imitrex] Allergy Mild SHORTNESS Verified 01/05/17 18:02 OF BREATH prochlorperazine Allergy Unknown Verified 01/05/17 18:02 [From Compazine] prochlorperazine edisylate * Allergy Unknown Verified 01/05/17 18:02 [From Compazine] sumatriptan succinate * Allergy SHORTNESS Verified 01/05/17 18:02 [From Imitrex] OF BREATH Home Medications: Home Medication List Medication Instructions Recorded Confirmed Last Taken Type Duloxetine [Cymbalta] 90 mg PO DAILY 06/02/14 01/05/17 01/03/17 History Loratadine [Claritin] 10 mg PO DAILY 06/02/14 01/05/17 01/03/17 History Metformin [Glucophage] 500 mg PO DAILY 06/02/14 01/05/17 01/03/17 History Topiramate [Topamax] 100 mg PO BID 06/02/14 01/05/17 01/03/17 History Zolmitriptan Nasal [place] [Zomig 5 mg PO BID PRN 11/29/14 01/05/17 01/03/17 History Nasal [place]] Albuterol Sulfate [Albuterol 1 - 2 puff IH 3-4XDAY PRN PRN #1 08/26/15 01/05/17 01/03/17 Rx Sulfate Hfa] hfa.aer.ad Dapagliflozin/Metformin HCl 1 tab PO DAILY 08/01/16 01/05/17 01/03/17 History [Xigduo Xr 10 mg-500 mg Tablet] Liraglutide [Victoza] 1 applicatn IM DAILY 08/01/16 01/05/17 01/03/17 History Topiramate [Topamax] 250 mg PO BID 08/01/16 01/05/17 01/03/17 History Duloxetine [Cymbalta] 90 mg PO DAILY 11/01/05/17 01/03/17 History Rizatriptan Benzoate [Maxalt] 10 mg PO DAILY PRN PRN #3 tablet 11/17/1601/03/17 Rx Clindamycin [Cleocin] 300 mg PO Q6HR #60 capsule 11/23/16 01/05/17 01/03/17 Rx Dapagliflozin/Metformin HCl 1 each PO DAILY #30 tab.bp.24h 11/23/16 01/05/17 Rx [Xigduo Xr 10 mg-500 mg Tablet] Dapagliflozin/Metformin HCl 1 each PO DAILY #30 tab.bp.24h 12/09/16 01/05/17 Rx [Xigduo Xr 10 mg-1,000 mg Tab] Duloxetine HCl [Cymbalta] 90 mg PO DAILY #30 capsule. 12/09/16 01/05/17 Rx Duloxetine [Cymbalta] 30 mg PO DAILY #30 capsule 12/09/16 01/05/17 01/03/17 Rx Duloxetine [Cymbalta] 60 mg PO DAILY #30 capsule 12/09/16 01/05/17 01/03/17 Rx Liraglutide [Victoza] 1.8 mg SUBQ DAILY #5 pen.injctr 12/09/16 01/05/17 Rx Hydroxyzine Pamoate [Vistaril] 25 mg PO TID PRN PRN #30 capsule 01/02/1701/03/17 Rx Clindamycin [Cleocin] 300 mg PO BID #14 capsule 01/04/17 01/05/17 Unknown Rx Past History - Adult - PAST MEDICAL HISTORY-ADULT Major Childhood Illnesses: reports: denies history Cardiovascular: reports: HTN Respiratory: reports: asthma Gastrointestinal: reports: denies history Obstetrical/Gynecological: reports: denies history Genitourinary: reports: denies history Musculoskeletal: reports: denies history Neurological: reports: headaches/migraines Psychiatric: reports: anxiety Endocrine/Immune: reports: Diabetes Other Conditions: reports: denies history Additional History: Frequent visits to the ER - PRIOR SURGERIES/PROCEDURES Surgical/Procedure History: reports: reviewed, not pertinent - PRIOR HOSPITALIZATIONS Prior Hospitalizations: reports: for other non-related - IMMUNIZATION STATUS Childhood Immunizations: See Nurse Assessment Flu Vaccine: See Nurse Assessment - FAMILY HISTORY Family History: reviewed, not pertinent Departure - Departure Time of Disposition Order: 15:28 DIAGNOSIS: Migraine Qualifiers: Migraine type: without aura Intractability: intractable Disposition: HOME 01 Certified Medical Emergency: Emergent Condition: Good Attestation - Physician/ CARL Attestation Patient care was provided by Advanced Practice Provider:: Yes Advanced Practice Provider:: Lukas Tracey Advanced Practice Provider documentation review:: The Mid-level provider documentation, treatment plan and medical decision making was reviewed by the physician who agrees with all treatment and medical decision making by the MLP.
--- NOTE | 2017-01-11 15:29 | PROVIDER DOCUMENTATION ---
HPI-Headache - General Source: patient - History of Present Illness-Headache Headache Location: reports: frontal (RIGHT) Quality of Pain: reports: aching Severity: reports: moderate Onset/Duration: reports: 2 days ago Timing: reports: still present Headache Context: reports: nothing Headache History: reports: history of migraines Any recent trauma/injury?: reports: none Headache severity at the maximum: moderate Modifying Factors: improves with: nothing Associated Symptoms: reports: headache Similar Symptoms Previously?: No Recently seen or treated by another doctor?: No <Jones Thakkar - Last Filed: 01/11/17 15:24> <Lukas Tracey - Last Filed: 01/11/17 15:40> - General Chief Complaint: Headache Stated Complaint: HEADACHE Time Seen by Provider: 01/11/17 15:25 Allergies/Adverse Reactions: Patient Allergies Allergy/AdvReac Type Severity Reaction Status Date / Time ondansetron HCl * Allergy Intermediate DIZZINESS Verified 01/05/17 18:02 [From Zofran] prochlorperazine maleate * Allergy Mild FLUSHING Verified 01/05/17 18:02 [From Compazine] sumatriptan [From Imitrex] Allergy Mild SHORTNESS Verified 01/05/17 18:02 OF BREATH prochlorperazine Allergy Unknown Verified 01/05/17 18:02 [From Compazine] prochlorperazine edisylate * Allergy Unknown Verified 01/05/17 18:02 [From Compazine] sumatriptan succinate * Allergy SHORTNESS Verified 01/05/17 18:02 [From Imitrex] OF BREATH Home Medications: Home Medication List Medication Instructions Recorded Confirmed Last Taken Type Duloxetine [Cymbalta] 90 mg PO DAILY 06/02/14 01/05/17 01/03/17 History Loratadine [Claritin] 10 mg PO DAILY 06/02/14 01/05/17 01/03/17 History Metformin [Glucophage] 500 mg PO DAILY 06/02/14 01/05/17 01/03/17 History Topiramate [Topamax] 100 mg PO BID 06/02/14 01/05/17 01/03/17 History Zolmitriptan Nasal [place] [Zomig 5 mg PO BID PRN 11/29/14 01/05/17 01/03/17 History Nasal [place]] Albuterol Sulfate [Albuterol 1 - 2 puff IH 3-4XDAY PRN PRN #1 08/26/15 01/05/17 01/03/17 Rx Sulfate Hfa] hfa.aer.ad Dapagliflozin/Metformin HCl 1 tab PO DAILY 08/01/16 01/05/17 01/03/17 History [Xigduo Xr 10 mg-500 mg Tablet] Liraglutide [Victoza] 1 applicatn IM DAILY 08/01/16 01/05/17 01/03/17 History Topiramate [Topamax] 250 mg PO BID 08/01/16 01/05/17 01/03/17 History Duloxetine [Cymbalta] 90 mg PO DAILY 09/25/16 01/05/17 01/03/17 History Rizatriptan Benzoate [Maxalt] 10 mg PO DAILY PRN PRN #3 tablet 11/17/1601/03/17 Rx Clindamycin [Cleocin] 300 mg PO Q6HR #60 capsule 11/23/16 01/05/17 01/03/17 Rx Dapagliflozin/Metformin HCl 1 each PO DAILY #30 tab.bp.24h 11/23/16 01/05/17 Rx [Xigduo Xr 10 mg-500 mg Tablet] Dapagliflozin/Metformin HCl 1 each PO DAILY #30 tab.bp.24h 12/09/16 01/05/17 Rx [Xigduo Xr 10 mg-1,000 mg Tab] Duloxetine HCl [Cymbalta] 90 mg PO DAILY #30 capsule. 12/09/16 01/05/17 Rx Duloxetine [Cymbalta] 30 mg PO DAILY #30 capsule 12/09/16 01/05/17 01/03/17 Rx Duloxetine [Cymbalta] 60 mg PO DAILY #30 capsule 12/09/16 01/05/17 01/03/17 Rx Liraglutide [Victoza] 1.8 mg SUBQ DAILY #5 pen.injctr 12/09/16 01/05/17 Rx Hydroxyzine Pamoate [Vistaril] 25 mg PO TID PRN PRN #30 capsule 01/02/1717 Rx Clindamycin [Cleocin] 300 mg PO BID #14 capsule 01/04/17 01/05/17 Unknown Rx - History of Present Illness-Headache Nature of Presenting Problem: Elinor PANIAGUA PRESENTS TO ED WITH C/O PT STATES SHE WAS SEEN HERE LAST NIGHT FOR MIGRAINE AND GOT A SHOT. PT STATES SHE IS GETTING BOTOX INJECTION AND STATES SHE THINKS THEY PUT SHOT IN SCAR TISSUE. PT STATES SHE HAS NO RELIEF OF MIGRAINE. (Jones Thakkar) CLARIFICATION, PATIENT STATES SHE RECEIVED NUBAIN/PHENERGAN LAST NIGHT AND IS CONCERNED THAT THE MED MAY HAVE WENT INTO SCAR TISSUE INSTEAD OF MUSCLE. STATES "I DIDN'T FEEL THE BURN OF THE MEDICINE AND MY HEADACHE NEVER GOT BETTER ". ALSO STATES SHE IS GETTING BOTOX INJECTIONS WELL. (Lukas Tracey) Review of Systems - Adult - REVIEW OF SYSTEMS - ADULT Constitutional: denies: chills, fever Eyes: reports: no symptoms reported Ears, Nose, Mouth & Throat: reports: no symptoms reported Cardiovascular: denies: chest pain, palpitations, syncope Respiratory: denies: cough, shortness of breath, wheezing Gastrointestinal: denies: abdominal pain, diarrhea, nausea, vomiting Genitourinary: reports: no symptoms reported Musculoskeletal: denies: back pain, neck pain Integumentary: reports: no symptoms reported Neurological: reports: headache/migraines. denies: dizziness/vertigo, syncope Psychiatric: reports: no symptoms reported Endocrine: reports: no symptoms reported Hematologic/Lymphatic: reports: no symptoms reported Allergic/Immunologic: reports: no symptoms reported All Other Systems: Reviewed and Negative <Jones Thakkar - Last Filed: 01/11/17 15:24> Past History - Adult - PAST MEDICAL HISTORY-ADULT Review of Records: reports: Nursing Assessment Review, Medications Reviewed Cardiovascular: reports: HTN Respiratory: reports: asthma Neurological: reports: headaches/migraines Psychiatric: reports: anxiety Endocrine/Immune: reports: Diabetes Other Conditions: reports: denies history Additional History: Frequent visits to the ER - PRIOR SURGERIES/PROCEDURES Surgical/Procedure History: reports: reviewed, not pertinent - PRIOR HOSPITALIZATIONS Prior Hospitalizations: reports: for other non-related - IMMUNIZATION STATUS Childhood Immunizations: See Nurse Assessment Flu Vaccine: See Nurse Assessment - FAMILY HISTORY Family History: reviewed, not pertinent - SOCIAL HISTORY Smoking: cigarettes, greater than 1 pack/day Provider spent 3-5 mins advising pt. on dangers of tobacco.: Discussed manners to quit use, and f/u contacts for add'l counseling. Substance Use: alcohol Alcohol Use Frequency: occasionally Number of drinks per typical drinking period:: 3-4 drinks Living Situation: family <Jones Thakkar - Last Filed: 01/11/17 15:24> Physical Exam- Neurological - Physical Exam-Neuro General Appearance: alert HENMT: normocephalic/atraumatic, moist mucous membranes Head Injury: no evidence of injury Neck: non-tender, full range of motion, supple Respiratory: chest non-tender, lungs clear, normal breath sounds Cardiovascular: normal peripheral pulses, regular rate, rhythm Abdominal Exam: normal bowel sounds, non tender, soft Lymphatic: no adenopathy Extremity: 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, 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 Exam: normal hearing, normal speech, PERRL Neurologic: grossly normal Integumentary: normal color, normal turgor, warm/dry Psych/Mental Status: oriented x 3 <Jones Thakkar - Last Filed: 01/11/17 15:24> Departure <Jones Thakkar - Last Filed: 01/11/17 15:24> - Departure Time of Disposition Order: 15:25 Certified Medical Emergency: Emergent <Lukas Tracey - Last Filed: 01/11/17 15:40> - Departure DIAGNOSIS: Migraine Qualifiers: Migraine type: without aura Intractability: intractable Disposition: HOME 01 Condition: Good Referrals: Washington Barlow [Primary Care Provider] - Attestation - Scribe Verification/Attestation Scribe:: Jones Thakkar Acting as Scribe for:: Lukas Tracey Scribe documention review:: This chart was documented by a scribe and accurately reflects the service the provider performed and the decisions made by the provider. <Jones Thakkar - Last Filed: 01/11/17 15:24> Physician Attestation
== END | disposition home or self-care (01) ==
LOC: P.ED 14:33
DX: G43.909 Migraine, unspecified, not intractable, without status migrainosus (principal); R51 Headache; I10 Essential (primary) hypertension; E11.9 Type 2 diabetes mellitus without complications; J45.909 Unspecified asthma, uncomplicated; F41.8 Other specified anxiety disorders; F17.210 Nicotine dependence, cigarettes, uncomplicated; Z79.899 Other long term (current) drug therapy; Z71.6 Tobacco abuse counseling
CPT/HCPCS: J2300; J2550

== ENCOUNTER 2017-01-13 13:45 | Emergency (ER) ==
[2017-01-13 13:56] VITALS: BP 111/66
--- NOTE | 2017-01-13 14:52 | PROVIDER DOCUMENTATION ---
HPI-Headache - General Source: patient - History of Present Illness-Headache Headache Location: reports: frontal (left) Quality of Pain: reports: throbbing Severity: reports: moderate Onset/Duration: reports: 4 days ago Timing: reports: still present Headache History: reports: occasional headaches Any recent trauma/injury?: reports: none Headache severity at the maximum: severe Similar Symptoms Previously?: Yes Recently seen or treated by another doctor?: No <Deborah Bellamy - Last Filed: 01/13/17 17:01> <Sb Velasquez - Last Filed: 01/13/17 17:04> - General Chief Complaint: Headache Stated Complaint: HEADACHE Time Seen by Provider: 01/13/17 14:28 Allergies/Adverse Reactions: Patient Allergies Allergy/AdvReac Type Severity Reaction Status Date / Time ondansetron HCl * Allergy Intermediate DIZZINESS Verified 01/05/17 18:02 [From Zofran] prochlorperazine maleate * Allergy Mild FLUSHING Verified 01/05/17 18:02 [From Compazine] sumatriptan [From Imitrex] Allergy Mild SHORTNESS Verified 01/05/17 18:02 OF BREATH prochlorperazine Allergy Unknown Verified 01/05/17 18:02 [From Compazine] prochlorperazine edisylate * Allergy Unknown Verified 01/05/17 18:02 [From Compazine] sumatriptan succinate * Allergy SHORTNESS Verified 01/05/17 18:02 [From Imitrex] OF BREATH Home Medications: Home Medication List Medication Instructions Recorded Confirmed Last Taken Type Duloxetine [Cymbalta] 90 mg PO DAILY 06/02/14 01/05/17 01/03/17 History Loratadine [Claritin] 10 mg PO DAILY 06/02/14 01/05/17 01/03/17 History Metformin [Glucophage] 500 mg PO DAILY 06/02/14 01/05/17 01/03/17 History Topiramate [Topamax] 100 mg PO BID 06/02/14 01/05/17 01/03/17 History Zolmitriptan Nasal [place] [Zomig 5 mg PO BID PRN 11/29/14 01/05/17 01/03/17 History Nasal [place]] Albuterol Sulfate [Albuterol 1 - 2 puff IH 3-4XDAY PRN PRN #1 10/20/15 03/01/17 02/27/17 Rx Sulfate Hfa] hfa.aer.ad Dapagliflozin/Metformin HCl 1 tab PO DAILY 08/01/16 01/05/17 01/03/17 History [Xigduo Xr 10 mg-500 mg Tablet] Liraglutide [Victoza] 1 applicatn IM DAILY 08/01/16 01/05/17 01/03/17 History Topiramate [Topamax] 250 mg PO BID 08/01/16 01/05/17 01/03/17 History Duloxetine [Cymbalta] 90 mg PO DAILY 09/25/16 01/05/17 01/03/17 History Rizatriptan Benzoate [Maxalt] 10 mg PO DAILY PRN PRN #3 tablet 11/17/1601/03/17 Rx Clindamycin [Cleocin] 300 mg PO Q6HR #60 capsule 11/23/16 01/05/17 01/03/17 Rx Dapagliflozin/Metformin HCl 1 each PO DAILY #30 tab.bp.24h 11/23/16 01/05/17 Rx [Xigduo Xr 10 mg-500 mg Tablet] Dapagliflozin/Metformin HCl 1 each PO DAILY #30 tab.bp.24h 12/09/16 01/05/17 Rx [Xigduo Xr 10 mg-1,000 mg Tab] Duloxetine HCl [Cymbalta] 90 mg PO DAILY #30 capsule. 12/09/16 01/05/17 Rx Duloxetine [Cymbalta] 30 mg PO DAILY #30 capsule 12/09/16 01/05/17 01/03/17 Rx Duloxetine [Cymbalta] 60 mg PO DAILY #30 capsule 12/09/16 01/05/17 01/03/17 Rx Liraglutide [Victoza] 1.8 mg SUBQ DAILY #5 pen.injctr 12/09/16 01/05/17 Rx Hydroxyzine Pamoate [Vistaril] 25 mg PO TID PRN PRN #30 capsule 01/02/1701/03/17 Rx Clindamycin [Cleocin] 300 mg PO BID #14 capsule 01/04/17 01/05/17 Unknown Rx - History of Present Illness-Headache Nature of Presenting Problem: Hx of migraines that presents to er with cc of headache x 5 days intermittent with photophobia. Reports has seen neurologist and is currently taking Topamax reports no relief. States left frontal throbbing pain. Reports dad past away 4 days ago. (Deborah Bellamy) Review of Systems - Adult - REVIEW OF SYSTEMS - ADULT Constitutional: denies: chills, fever, fatique Eyes: reports: no symptoms reported Ears, Nose, Mouth & Throat: denies: ear discharge, ear pain, sinus problem, throat pain Cardiovascular: reports: no symptoms reported Respiratory: reports: no symptoms reported Gastrointestinal: reports: no symptoms reported Genitourinary: reports: no symptoms reported Musculoskeletal: reports: no symptoms reported Integumentary: reports: no symptoms reported Neurological: reports: headache/migraines. denies: paresthesia, seizure, slurred speech Psychiatric: reports: no symptoms reported Endocrine: reports: no symptoms reported Hematologic/Lymphatic: reports: no symptoms reported Allergic/Immunologic: reports: no symptoms reported All Other Systems: Reviewed and Negative <Deborah Bellamy - Last Filed: 01/13/17 17:01> Past History - Adult - PAST MEDICAL HISTORY-ADULT Review of Records: reports: Nursing Assessment Review Major Childhood Illnesses: reports: denies history Cardiovascular: reports: HTN Respiratory: reports: asthma Gastrointestinal: reports: denies history Obstetrical/Gynecological: reports: denies history Genitourinary: reports: denies history Musculoskeletal: reports: denies history Neurological: reports: headaches/migraines Psychiatric: reports: anxiety Endocrine/Immune: reports: Diabetes Other Conditions: reports: denies history Additional History: Frequent visits to the ER - PRIOR SURGERIES/PROCEDURES Surgical/Procedure History: reports: reviewed, not pertinent - PRIOR HOSPITALIZATIONS Prior Hospitalizations: reports: for other non-related - IMMUNIZATION STATUS Childhood Immunizations: See Nurse Assessment Flu Vaccine: See Nurse Assessment - FAMILY HISTORY Family History: reviewed, not pertinent - SOCIAL HISTORY Smoking: cigarettes, greater than 1 pack/day Provider spent 3-5 mins advising pt. on dangers of tobacco.: Discussed manners to quit use, and f/u contacts for add'l counseling. Substance Use: alcohol <Deborah Bellamy - Last Filed: 01/13/17 17:01> Physical Exam- Neurological - Physical Exam-Neuro Initial Vital Signs Reviewed: Yes General Appearance: appears well, alert, no apparent distress Eye Exam: bilateral eye: PERRL, EOMI, photophobia HENMT: moist mucous membranes, normal ENT inspection, TMs normal, pharynx normal Head Injury: no evidence of injury Neck: non-tender, full range of motion, supple, normal inspection Respiratory: chest non-tender, lungs clear, normal breath sounds, no pleuratic chest pain, no respiratory distress, no accessory muscle use Cardiovascular: regular rate, rhythm, no edema, no gallop, no JVD, no murmur Abdominal Exam: normal bowel sounds, non tender, soft, no organomegaly, no pulsatile mass Extremity: 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, 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 Exam: normal hearing, normal speech, PERRL Coordination/Gait: normal finger to nose, normal gait Motor/Sensory: no motor deficit, no sensory deficit, no pronator drift Neurologic: teletype technician II-XII nml as tested, grossly normal, no motor/sensory deficits Integumentary: normal color, normal turgor, warm/dry Psych/Mental Status: normal mood/affect, normal thought content, normal thought process, oriented x 3 - Glascow Coma Scale Best Eye Response: (4) open spontaneously Best Verbal Response: (5) oriented Best Motor Response: (6) obeys commands Total Glascow Score: 15 <Deborah Bellamy - Last Filed: 01/13/17 17:01> Progress <Deborah Bellamy - Last Filed: 01/13/17 17:01> <Sb Velasquez - Last Filed: 01/13/17 17:04> - PLAN OF CARE/RESULTS Progress/Plan/Lab Results: Vital Signs - 24 hr 01/13/17 01/13/17 13:53 13:56 Temperature 98.3 F Pulse Rate 101 H Respiratory 20 Rate Blood Pressure 111/66 O2 Sat by Pulse 100 99 Oximetry (Deborah Bellamy) Departure - Departure Time of Disposition Order: 15:30 Certified Medical Emergency: Emergent <Deborah Bellamy - Last Filed: 01/13/17 17:01> - Departure Time of Disposition Order: 15:20 Certified Medical Emergency: Emergent <Sb Velasquez - Last Filed: 01/13/17 17:04> - Departure DIAGNOSIS: Migraine Qualifiers: Migraine type: unspecified Status migrainosus presence: with status migrainosus Intractability: not intractable Qualified Code(s): G43.901 - Migraine, unspecified, not intractable, with status migrainosus Disposition: HOME 01 Condition: Stable Additional Instructions: ED Follow Up Instructions: You have been treated by a care provider in the Emergency Department. These instructions are being provided to you so you can have an understanding of how to care for yourself upon discharge. Upon discharge from the Emergency Department, you are responsible for making arrangements for follow-up care by a physician of your choice. Take all prescribed medications as directed. Return to the Emergency Department immediately for any new or worsening symptoms. You may call the Physician Referral phone number at [phone] to obtain a list of Physicians who are taking new patients. Referrals: Washington Barlow [Primary Care Provider] - Instructions: Migraine Headache, [id number] Attestation - Scribe Verification/Attestation Scribe:: Deborah Bellamy Acting as Scribe for:: Sb Velasquez Scribe documention review:: This chart was documented by a scribe and accurately reflects the service the provider performed and the decisions made by the provider. <Deborah Bellamy - Last Filed: 01/13/17 17:01> Physician Attestation - Physician Attestation I, the provider, attest to the following statement:: Sb Velasquez Physician documentation Attestation:: This documentation recorded by the scribe accurately reflects the service I personally performed and the decisions made by me. <Sb Velasquez - Last Filed: 01/13/17 17:04>
[2017-01-13] MEDS ORDERED: PHENERGAN IM ONE (14:55)
[2017-01-13] MEDS ORDERED: NUBAIN IM ONE (14:55)
== END 2017-01-13 15:21 | disposition home or self-care (01) ==
LOC: P.ED 13:45
DX: G43.901 Migraine, unspecified, not intractable, with status migrainosus (principal); R51 Headache; I10 Essential (primary) hypertension; E11.9 Type 2 diabetes mellitus without complications; J45.909 Unspecified asthma, uncomplicated; F41.9 Anxiety disorder, unspecified; F17.210 Nicotine dependence, cigarettes, uncomplicated; Z71.6 Tobacco abuse counseling; Z79.899 Other long term (current) drug therapy
CPT/HCPCS: 96372; J2300; J2550

== ENCOUNTER 2017-01-15 10:37 | Emergency (ER) ==
[2017-01-15 10:45] VITALS: BP 143/68
--- NOTE | 2017-01-15 11:50 | PROVIDER DOCUMENTATION ---
HPI-Headache - General Source: patient - History of Present Illness-Headache Headache Location: reports: frontal Quality of Pain: reports: throbbing Onset/Duration: reports: last night Timing: reports: still present Headache History: reports: chronic headaches Any recent trauma/injury?: reports: none Associated Symptoms: reports: nausea Similar Symptoms Previously?: Yes <Naomi Lino - Last Filed: 01/15/17 11:44> <Jefe Mendoza - Last Filed: 01/15/17 11:58> - General Chief Complaint: Headache Stated Complaint: HEADACHE Time Seen by Provider: 01/15/17 11:04 Allergies/Adverse Reactions: Patient Allergies Allergy/AdvReac Type Severity Reaction Status Date / Time ondansetron HCl * Allergy Intermediate DIZZINESS Verified 01/05/17 18:02 [From Zofran] prochlorperazine maleate * Allergy Mild FLUSHING Verified 01/05/17 18:02 [From Compazine] sumatriptan [From Imitrex] Allergy Mild SHORTNESS Verified 01/05/17 18:02 OF BREATH prochlorperazine Allergy Unknown Verified 01/05/17 18:02 [From Compazine] prochlorperazine edisylate * Allergy Unknown Verified 01/05/17 18:02 [From Compazine] sumatriptan succinate * Allergy SHORTNESS Verified 01/05/17 18:02 [From Imitrex] OF BREATH Home Medications: Home Medication List Medication Instructions Recorded Confirmed Last Taken Type Duloxetine [Cymbalta] 90 mg PO DAILY 06/02/14 01/05/17 01/03/17 History Loratadine [Claritin] 10 mg PO DAILY 06/02/14 01/05/17 01/03/17 History Metformin [Glucophage] 500 mg PO DAILY 06/02/14 01/05/17 01/03/17 History Topiramate [Topamax] 100 mg PO BID 06/02/14 01/05/17 01/03/17 History Zolmitriptan Nasal [place] [Zomig 5 mg PO BID PRN 11/29/14 01/05/17 01/03/17 History Nasal [place]] Albuterol Sulfate [Albuterol 1 - 2 puff IH 3-4XDAY PRN PRN #1 08/26/15 01/05/17 01/03/17 Rx Sulfate Hfa] hfa.aer.ad Dapagliflozin/Metformin HCl 1 tab PO DAILY 08/01/16 01/05/17 01/03/17 History [Xigduo Xr 10 mg-500 mg Tablet] Liraglutide [Victoza] 1 applicatn IM DAILY 08/01/16 01/05/17 01/03/17 History Topiramate [Topamax] 250 mg PO BID 08/01/16 01/05/17 01/03/17 History Duloxetine [Cymbalta] 90 mg PO DAILY 09/25/16 01/05/17 01/03/17 History Rizatriptan Benzoate [Maxalt] 10 mg PO DAILY PRN PRN #3 tablet 11/17/1601/03/17 Rx Clindamycin [Cleocin] 300 mg PO Q6HR #60 capsule 11/23/16 01/05/17 01/03/17 Rx Dapagliflozin/Metformin HCl 1 each PO DAILY #30 tab.bp.24h 11/23/16 01/05/17 Rx [Xigduo Xr 10 mg-500 mg Tablet] Dapagliflozin/Metformin HCl 1 each PO DAILY #30 tab.bp.24h 12/09/16 01/05/17 Rx [Xigduo Xr 10 mg-1,000 mg Tab] Duloxetine HCl [Cymbalta] 90 mg PO DAILY #30 capsule. 12/09/16 01/05/17 Rx Duloxetine [Cymbalta] 30 mg PO DAILY #30 capsule 12/09/16 01/05/17 01/03/17 Rx Duloxetine [Cymbalta] 60 mg PO DAILY #30 capsule 12/09/16 01/05/17 01/03/17 Rx Liraglutide [Victoza] 1.8 mg SUBQ DAILY #5 pen.injctr 12/09/16 01/05/17 Rx Hydroxyzine Pamoate [Vistaril] 25 mg PO TID PRN PRN #30 capsule 01/02/1701/03/17 Rx Clindamycin [Cleocin] 300 mg PO BID #14 capsule 01/04/17 01/05/17 Unknown Rx Duloxetine [Cymbalta] 30 mg PO DAILY #30 capsule 01/15/17 Unknown Rx Duloxetine [Cymbalta] 60 mg PO DAILY #30 capsule 01/15/17 Unknown Rx - History of Present Illness-Headache Nature of Presenting Problem: 51 year old female presents to the ER with complaint of a migraine. Pt has a long history of migraines. States this migraine started last night. She also complains of nausea. Pt has also request prescription of Cymbalta. (Naomi Lino) Review of Systems - Adult - REVIEW OF SYSTEMS - ADULT Constitutional: denies: chills, fever Eyes: reports: no symptoms reported Ears, Nose, Mouth & Throat: reports: no symptoms reported Cardiovascular: reports: no symptoms reported Respiratory: reports: no symptoms reported Gastrointestinal: reports: no symptoms reported Genitourinary: reports: no symptoms reported Musculoskeletal: reports: no symptoms reported Integumentary: reports: no symptoms reported Neurological: reports: headache/migraines. denies: seizure Psychiatric: reports: no symptoms reported Endocrine: reports: no symptoms reported Hematologic/Lymphatic: reports: no symptoms reported Allergic/Immunologic: reports: no symptoms reported All Other Systems: Reviewed and Negative <Naomi Lino - Last Filed: 01/15/17 11:44> Past History - Adult - PAST MEDICAL HISTORY-ADULT Review of Records: reports: Old Records Reviewed, Nursing Assessment Review, Medications Reviewed Major Childhood Illnesses: reports: denies history Cardiovascular: reports: HTN Respiratory: reports: asthma Gastrointestinal: reports: denies history Obstetrical/Gynecological: reports: denies history Genitourinary: reports: denies history Musculoskeletal: reports: denies history Neurological: reports: headaches/migraines Psychiatric: reports: anxiety Endocrine/Immune: reports: Diabetes Other Conditions: reports: denies history Additional History: Frequent visits to the ER - PRIOR SURGERIES/PROCEDURES Surgical/Procedure History: reports: reviewed, not pertinent - PRIOR HOSPITALIZATIONS Prior Hospitalizations: reports: for other non-related - IMMUNIZATION STATUS Childhood Immunizations: See Nurse Assessment Flu Vaccine: See Nurse Assessment - FAMILY HISTORY Family History: reviewed, not pertinent <Naomi Lino - Last Filed: 01/15/17 11:44> Physical Exam- Neurological - Physical Exam-Neuro Initial Vital Signs Reviewed: Yes General Appearance: alert, no apparent distress Eye Exam: bilateral eye: normal inspection, PERRL HENMT: normocephalic/atraumatic, moist mucous membranes Head Injury: no evidence of injury. 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: normal speech, PERRL Coordination/Gait: normal finger to nose, normal gait Motor/Sensory: no motor deficit, no sensory deficit Neurologic: grossly normal, no motor/sensory deficits Integumentary: normal color, warm/dry Psych/Mental Status: normal mood/affect, normal thought content, normal thought process, oriented x 3 <Naomi Lino - Last Filed: 01/15/17 11:44> Departure <Naomi Lino - Last Filed: 01/15/17 11:44> - Departure Time of Disposition Order: 11:55 Certified Medical Emergency: Emergent <Jefe Mendoza - Last Filed: 01/15/17 11:58> - Departure DIAGNOSIS: Chronic headache Qualifiers: Headache type: unspecified Intractability: not intractable Qualified Code(s): R51 - Headache Disposition: HOME 01 Condition: Stable Additional Instructions: ED Follow Up Instructions: You have been treated by a care provider in the Emergency Department. These instructions are being provided to you so you can have an understanding of how to care for yourself upon discharge. Upon discharge from the Emergency Department, you are responsible for making arrangements for follow-up care by a physician of your choice. Take all prescribed medications as directed. Return to the Emergency Department immediately for any new or worsening symptoms. You may call the Physician Referral phone number at [phone] to obtain a list of Physicians who are taking new patients. Prescriptions: Duloxetine [Cymbalta] 30 mg PO DAILY #30 capsule Duloxetine [Cymbalta] 60 mg PO DAILY #30 capsule Attestation - Scribe Verification/Attestation Scribe:: Naomi Lino Acting as Scribe for:: Jefe Mendoza Scribe documention review:: This chart was documented by a scribe and accurately reflects the service the provider performed and the decisions made by the provider. <Naomi Lino - Last Filed: 01/15/17 11:44> Physician Attestation
[2017-01-15] MEDS ORDERED: PHENERGAN IM ONE (11:54)
[2017-01-15] MEDS ORDERED: NUBAIN IM ONE (11:54)
== END 2017-01-15 12:14 | disposition home or self-care (01) ==
LOC: P.ED 10:37
DX: R51 Headache (principal); R11.0 Nausea; I10 Essential (primary) hypertension; J45.909 Unspecified asthma, uncomplicated; E11.9 Type 2 diabetes mellitus without complications; F41.9 Anxiety disorder, unspecified; Z79.899 Other long term (current) drug therapy
CPT/HCPCS: 96372; J2300; J2550

== ENCOUNTER 2017-01-18 10:26 | Emergency (ER) ==
[2017-01-18 10:35] VITALS: BP 163/77
[2017-01-18] MEDS ORDERED: PHENERGAN IM ONE (10:36)
[2017-01-18] MEDS ORDERED: NUBAIN IM ONE (10:36)
--- NOTE | 2017-01-18 10:50 | PROVIDER DOCUMENTATION ---
HPI-General Adult - General Chief Complaint: Headache Stated Complaint: HEADACHE Time Seen by Provider: 01/18/17 10:35 Source: patient Allergies/Adverse Reactions: Patient Allergies Allergy/AdvReac Type Severity Reaction Status Date / Time ondansetron HCl * Allergy Intermediate DIZZINESS Verified 01/05/17 18:02 [From Zofran] prochlorperazine maleate * Allergy Mild FLUSHING Verified 01/05/17 18:02 [From Compazine] sumatriptan [From Imitrex] Allergy Mild SHORTNESS Verified 01/05/17 18:02 OF BREATH prochlorperazine Allergy Unknown Verified 01/05/17 18:02 [From Compazine] prochlorperazine edisylate * Allergy Unknown Verified 01/05/17 18:02 [From Compazine] sumatriptan succinate * Allergy SHORTNESS Verified 01/05/17 18:02 [From Imitrex] OF BREATH Home Medications: Home Medication List Medication Instructions Recorded Confirmed Last Taken Type Duloxetine [Cymbalta] 90 mg PO DAILY 06/02/14 01/05/17 01/03/17 History Loratadine [Claritin] 10 mg PO DAILY 06/02/14 01/05/17 01/03/17 History Metformin [Glucophage] 500 mg PO DAILY 06/02/14 01/05/17 01/03/17 History Topiramate [Topamax] 100 mg PO BID 06/02/14 01/05/17 01/03/17 History Zolmitriptan Nasal [place] [Zomig 5 mg PO BID PRN 11/29/14 01/05/17 01/03/17 History Nasal [place]] Albuterol Sulfate [Albuterol 1 - 2 puff IH 3-4XDAY PRN PRN #1 08/26/15 01/05/17 01/03/17 Rx Sulfate Hfa] hfa.aer.ad Dapagliflozin/Metformin HCl 1 tab PO DAILY 08/01/16 01/05/17 01/03/17 History [Xigduo Xr 10 mg-500 mg Tablet] Liraglutide [Victoza] 1 applicatn IM DAILY 08/01/16 01/05/17 01/03/17 History Topiramate [Topamax] 250 mg PO BID 08/01/16 01/05/17 01/03/17 History Duloxetine [Cymbalta] 90 mg PO DAILY 09/25/16 01/05/17 01/03/17 History Rizatriptan Benzoate [Maxalt] 10 mg PO DAILY PRN PRN #3 tablet 11/17/1601/03/17 Rx Clindamycin [Cleocin] 300 mg PO Q6HR #60 capsule 11/23/16 01/05/17 01/03/17 Rx Dapagliflozin/Metformin HCl 1 each PO DAILY #30 tab.bp.24h 11/23/16 01/05/17 Rx [Xigduo Xr 10 mg-500 mg Tablet] Dapagliflozin/Metformin HCl 1 each PO DAILY #30 tab.bp.24h 12/09/16 01/05/17 Rx [Xigduo Xr 10 mg-1,000 mg Tab] Duloxetine HCl [Cymbalta] 90 mg PO DAILY #30 capsule. 12/09/16 01/05/17 Rx Duloxetine [Cymbalta] 30 mg PO DAILY #30 capsule 12/09/16 01/05/17 01/03/17 Rx Duloxetine [Cymbalta] 60 mg PO DAILY #30 capsule 12/09/16 01/05/17 01/03/17 Rx Liraglutide [Victoza] 1.8 mg SUBQ DAILY #5 pen.injctr 12/09/16 01/05/17 Rx Hydroxyzine Pamoate [Vistaril] 25 mg PO TID PRN PRN #30 capsule 01/02/1701/03/17 Rx Clindamycin [Cleocin] 300 mg PO BID #14 capsule 01/04/17 01/05/17 Unknown Rx Duloxetine [Cymbalta] 30 mg PO DAILY #30 capsule 01/15/17 Unknown Rx Duloxetine [Cymbalta] 60 mg PO DAILY #30 capsule 01/15/17 Unknown Rx - History of Present Illness -Gen Adult Nature of Presenting Problems: Pt. is 51 yof that presents with c/o migraine headache for two days. Pt. reports nausea and photophobia. Pt. states none of her OTC medications have helped and she needs some relief. Location of Pain/Injury: reports: head. denies: face, mouth, neck, chest, upper extremity, hand(s), abdomen, back, pelvis, genitalia, lower extremity, feet, upper body, lower body, generalized Pain Radiation: reports: no radiation Quality of Pain: reports: aching. denies: burning, cramping, dull, fullness, indigestion, pressure, sharp, stabbing, tearing, throbbing, tightness Severity: reports: moderate. denies: mild, severe Onset/Duration: reports: gradual, 2 days ago Timing: reports: still present, constant. denies: improving, gone now, resolved prior to arrival, intermittent, changing over time, getting worse Context/Activities at Onset: reports: none. denies: recent emotional stress, recent physical stress, recent trauma history, possible bad food, cold exposure , out of country travel Modifying Factors: improves with: nothing Associated Symptoms: reports: headaches, nausea. denies: anxiety, arm pain, back/neck pain, chest pain, constipation, cough, diaphoresis, diarrhea, dizziness, EENT symptoms, fatigue, fever/chills, genitourinary problems, heartburn, joint pain, loss of appetite, malaise, muscle aches, sinus congestion /drainage, rash, seizure, shortness of breath, sensory/motor loss, pain with inspiration, swelling/mass in abdomen, syncope, vomiting, weakness, trouble walking Similar Symptoms Previously?: Yes Recently seen or treated by another doctor?: No Review of Systems - Adult - REVIEW OF SYSTEMS - ADULT Constitutional: reports: see HPI. denies: chills, fever, fatique Eyes: reports: see HPI. denies: discharge, blurred vision, double vision Ears, Nose, Mouth & Throat: reports: see HPI. denies: ear pain, hearing loss, sinus problem, nose pain, loose teeth, mouth/dental pain, throat pain, throat swelling Cardiovascular: reports: see HPI. denies: chest pain, orthopnea, palpitations, syncope Respiratory: reports: see HPI. denies: cough, dyspnea on exertion, pleurisy, shortness of breath, wheezing Gastrointestinal: reports: see HPI, nausea. denies: abdominal pain, hematemesis , diarrhea, vomiting Genitourinary: reports: see HPI. denies: dysuria, discharge, hematuria, hesitency, urgency Musculoskeletal: reports: see HPI. denies: bone pain, back pain, joint pain, muscle aches, neck pain Integumentary: reports: see HPI. denies: hives, itching, rash, skin thickening Neurological: reports: see HPI, headache/migraines. denies: ataxia, dizziness/ vertigo, numbness, seizure, tremors Psychiatric: reports: see HPI. denies: anxiety, depression, emotional problems , insomnia, panic attacks, suicidal thoughts Past History - Adult - PAST MEDICAL HISTORY-ADULT Review of Records: reports: Old Records Reviewed, Nursing Assessment Review, Medications Reviewed, Social history reviewed & non-contributory. Major Childhood Illnesses: reports: denies history Cardiovascular: reports: HTN Respiratory: reports: asthma Gastrointestinal: reports: denies history Obstetrical/Gynecological: reports: denies history Genitourinary: reports: denies history Musculoskeletal: reports: denies history Neurological: reports: headaches/migraines Psychiatric: reports: anxiety Endocrine/Immune: reports: Diabetes Other Conditions: reports: denies history Additional History: Frequent visits to the ER - PRIOR SURGERIES/PROCEDURES Surgical/Procedure History: reports: reviewed, not pertinent - PRIOR HOSPITALIZATIONS Prior Hospitalizations: reports: for other non-related - IMMUNIZATION STATUS Childhood Immunizations: See Nurse Assessment Flu Vaccine: See Nurse Assessment - FAMILY HISTORY Family History: reviewed, not pertinent - SOCIAL HISTORY Smoking: cigarettes, less than 1 pack/day Provider spent 3-5 mins advising pt. on dangers of tobacco.: Discussed the need to stop smoking. Physical Exam-General - PHYSICAL EXAM-ADULT Initial Vital Signs Reviewed: Yes - CONSTITUTIONAL General Appearance: alert, mild distress, obese. negative: thin, anxious, lethargic, slow to respond, obtunded, combative - EYES Eyes: PERRL/EOMI, pink conjunctivae, photophobia. negative: conjuctival exudate , scleral icterus, subconjunctival hemorrhage - HEAD, EARS, NOSE, MOUTH & THROAT HENMT: normocephalic/atraumatic, moist mucous membranes. negative: angioedema, frontal tenderness, maxillary tenderness - NECK Neck: non-tender, full range of motion, supple, normal inspection. negative: lymphadenopathy, trachial deviation, thyromegaly - RESPIRATORY Respiratory: lungs clear, normal breath sounds. negative: crackles, rales, rhonchi, stridor, wheezing - CARDIOVASCULAR Cardiovascular: normal peripheral pulses, regular rate, rhythm, no edema, no JVD , no murmur. negative: extra beats, friction rub, irregularly irregular - CHEST (BREASTS) Chest/Breast: deferred - GASTROINTESTINAL (ABDOMEN) Abdominal Exam: normal bowel sounds, non tender, soft. negative: distended, guarding, rigid, rebound, tenderness, hernia, mass - GENITOURINARY Female Genitalia/Pelvic Exam: deferred Rectal Exam: deferred Hemoccult Exam: deferred - LYMPHATIC Lymphatic: no adenopathy. negative: axilla node tender, cervical node tenderness - MUSCULOSKELETAL Back Exam: normal inspection, no CVA tenderness, no vertebral tenderness. negative: ecchymosis, swelling, vertebral tenderness Extremity: 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, non-tender, normal gait, normal inspection. negative: deformity, erythema, inflammation, swelling, tenderness Peripheral Pulses: radial (R): 2+, radial (L): 2+ - SKIN Integumentary: normal color, normal turgor, warm/dry. negative: cyanosis, diaphoresis, ecchymosis, erythema, jaundice, mottled, pallor, petechiae, purpura , rash, swelling, tenderness - NEUROLOGIC Neurologic: grossly normal, no motor/sensory deficits. negative: aphasia, facial droop, focal weakness, motor weakness, sensory deficit - PSYCHIATRIC Psych/Mental Status: normal mood/affect, normal thought content, normal thought process, oriented x 3. negative: anxious, paranoid, tearful Progress - PLAN OF CARE/RESULTS Progress/Plan/Lab Results: Discussed results and plan of care with patient. Patient agrees with plan and verbalizes understanding. Vital Signs Temp Pulse Resp BP Pulse Ox 01/18/17 10:33 98 F 106 H 18 163/77 99 ondansetron HCl * [From Zofran] Allergy (Intermediate, Verified 01/05/17 18:02) DIZZINESS prochlorperazine maleate * [From Compazine] Allergy (Mild, Verified 01/05/17 18: 02) FLUSHING sumatriptan [From Imitrex] Allergy (Mild, Verified 01/05/17 18:02) SHORTNESS OF BREATH prochlorperazine [From Compazine] Allergy (Verified 01/05/17 18:02) Unknown prochlorperazine edisylate * [From Compazine] Allergy (Verified 01/05/17 18:02) Unknown sumatriptan succinate * [From Imitrex] Allergy (Verified 01/05/17 18:02) SHORTNESS OF BREATH Duloxetine [Cymbalta] 90 mg PO DAILY 06/02/14 Loratadine [Claritin] 10 mg PO DAILY 06/02/14 Metformin [Glucophage] 500 mg PO DAILY 06/02/14 Topiramate [Topamax] 100 mg PO BID 06/02/14 Zolmitriptan Nasal [place] [Zomig Nasal [place]] 5 mg PO BID PRN 11/29/14 Albuterol Sulfate [Albuterol Sulfate Hfa] 1 - 2 puff IH 3-4XDAY PRN PRN #1 hfa.aer.ad 08/26/15 Dapagliflozin/Metformin HCl [Xigduo Xr 10 mg-500 mg Tablet] 1 tab PO DAILY 08/01 Liraglutide [Victoza] 1 applicatn IM DAILY 08/01/16 Topiramate [Topamax] 250 mg PO BID 08/01/16 Duloxetine [Cymbalta] 90 mg PO DAILY 09/25/16 Rizatriptan Benzoate [Maxalt] 10 mg PO DAILY PRN PRN #3 tablet 11/17/16 Clindamycin [Cleocin] 300 mg PO Q6HR #60 capsule 11/23/16 Dapagliflozin/Metformin HCl [Xigduo Xr 10 mg-500 mg Tablet] 1 each PO DAILY #30 tab.bp.24h 11/23/16 Dapagliflozin/Metformin HCl [Xigduo Xr 10 mg-1,000 mg Tab] 1 each PO DAILY #30 tab.bp.24h 12/09/16 Duloxetine HCl [Cymbalta] 90 mg PO DAILY #30 capsule. 12/09/16 Duloxetine [Cymbalta] 30 mg PO DAILY #30 capsule 12/09/16 Duloxetine [Cymbalta] 60 mg PO DAILY #30 capsule 12/09/16 Liraglutide [Victoza] 1.8 mg SUBQ DAILY #5 pen.injctr 12/09/16 Hydroxyzine Pamoate [Vistaril] 25 mg PO TID PRN PRN #30 capsule 01/02/17 Clindamycin [Cleocin] 300 mg PO BID #14 capsule 01/04/17 Duloxetine [Cymbalta] 30 mg PO DAILY #30 capsule 01/15/17 Duloxetine [Cymbalta] 60 mg PO DAILY #30 capsule 01/15/17 Departure - Departure Time of Disposition Order: 10:53 DIAGNOSIS: Chronic headache Qualifiers: Headache type: unspecified Intractability: not intractable Qualified Code(s): R51 - Headache Disposition: HOME 01 Certified Medical Emergency: Emergent Condition: Stable Additional Instructions: Follow up with primary care physician Rest in a cool dark room Return to ED for any concerns or worsening of symptoms ED Follow Up Instructions: You have been treated by a care provider in the Emergency Department. These instructions are being provided to you so you can have an understanding of how to care for yourself upon discharge. Upon discharge from the Emergency Department, you are responsible for making arrangements for follow-up care by a physician of your choice. Take all prescribed medications as directed. Return to the Emergency Department immediately for any new or worsening symptoms. You may call the Physician Referral phone number at [phone] to obtain a list of Physicians who are taking new patients. Attestation - Physician/ CARL Attestation Patient care was provided by Advanced Practice Provider:: Yes Advanced Practice Provider:: Rody Holland Advanced Practice Provider documentation review:: The Mid-level provider documentation, treatment plan and medical decision making was reviewed by the physician who agrees with all treatment and medical decision making by the MLP.
== END 2017-01-18 11:28 | disposition home or self-care (01) ==
LOC: P.ED 10:26
DX: R51 Headache (principal); R11.0 Nausea; H53.149 Visual discomfort, unspecified; I10 Essential (primary) hypertension; J45.909 Unspecified asthma, uncomplicated; E11.9 Type 2 diabetes mellitus without complications; F41.9 Anxiety disorder, unspecified; E66.9 Obesity, unspecified; F17.210 Nicotine dependence, cigarettes, uncomplicated; Z79.899 Other long term (current) drug therapy; Z71.6 Tobacco abuse counseling
CPT/HCPCS: 96372; J2300; J2550

== ENCOUNTER 2017-01-21 12:37 | Emergency (ER) ==
[2017-01-21 13:02] VITALS: BP 137/74
[2017-01-21] MEDS ORDERED: PHENERGAN IM ONE (13:31)
[2017-01-21] MEDS ORDERED: NUBAIN IM ONE (13:31)
[2017-01-21] MEDS ORDERED: SODIUM CHLORIDE 0.9% INJ ONE (13:31)
--- NOTE | 2017-01-21 13:32 | PROVIDER DOCUMENTATION ---
HPI-Headache - General Chief Complaint: Headache Stated Complaint: HEADACHE Time Seen by Provider: 01/21/17 13:29 Source: patient Allergies/Adverse Reactions: Patient Allergies Allergy/AdvReac Type Severity Reaction Status Date / Time ondansetron HCl * Allergy Intermediate DIZZINESS Verified 01/05/17 18:02 [From Zofran] prochlorperazine maleate * Allergy Mild FLUSHING Verified 01/05/17 18:02 [From Compazine] sumatriptan [From Imitrex] Allergy Mild SHORTNESS Verified 01/05/17 18:02 OF BREATH prochlorperazine Allergy Unknown Verified 01/05/17 18:02 [From Compazine] prochlorperazine edisylate * Allergy Unknown Verified 01/05/17 18:02 [From Compazine] sumatriptan succinate * Allergy SHORTNESS Verified 01/05/17 18:02 [From Imitrex] OF BREATH Home Medications: Home Medication List Medication Instructions Recorded Confirmed Last Taken Type Duloxetine [Cymbalta] 90 mg PO DAILY 06/02/14 01/05/17 01/03/17 History Loratadine [Claritin] 10 mg PO DAILY 06/02/14 01/05/17 01/03/17 History Metformin [Glucophage] 500 mg PO DAILY 06/02/14 01/05/17 01/03/17 History Topiramate [Topamax] 100 mg PO BID 06/02/14 01/05/17 01/03/17 History Zolmitriptan Nasal [place] [Zomig 5 mg PO BID PRN 11/29/14 01/05/17 01/03/17 History Nasal [place]] Albuterol Sulfate [Albuterol 1 - 2 puff IH 3-4XDAY PRN PRN #1 08/26/15 01/05/17 01/03/17 Rx Sulfate Hfa] hfa.aer.ad Dapagliflozin/Metformin HCl 1 tab PO DAILY 08/01/16 01/05/17 01/03/17 History [Xigduo Xr 10 mg-500 mg Tablet] Liraglutide [Victoza] 1 applicatn IM DAILY 08/01/16 01/05/17 01/03/17 History Topiramate [Topamax] 250 mg PO BID 08/01/16 01/05/17 01/03/17 History Duloxetine [Cymbalta] 90 mg PO DAILY 09/25/16 01/05/17 01/03/17 History Rizatriptan Benzoate [Maxalt] 10 mg PO DAILY PRN PRN #3 tablet 11/17/1601/03/17 Rx Clindamycin [Cleocin] 300 mg PO Q6HR #60 capsule 11/23/16 01/05/17 01/03/17 Rx Dapagliflozin/Metformin HCl 1 each PO DAILY #30 tab.bp.24h 11/23/16 01/05/17 Rx [Xigduo Xr 10 mg-500 mg Tablet] Dapagliflozin/Metformin HCl 1 each PO DAILY #30 tab.bp.24h 12/09/16 01/05/17 Rx [Xigduo Xr 10 mg-1,000 mg Tab] Duloxetine HCl [Cymbalta] 90 mg PO DAILY #30 capsule. 12/09/16 01/05/17 Rx Duloxetine [Cymbalta] 30 mg PO DAILY #30 capsule 12/09/16 01/05/17 01/03/17 Rx Duloxetine [Cymbalta] 60 mg PO DAILY #30 capsule 12/09/16 01/05/17 01/03/17 Rx Liraglutide [Victoza] 1.8 mg SUBQ DAILY #5 pen.injctr 12/09/16 01/05/17 Rx Hydroxyzine Pamoate [Vistaril] 25 mg PO TID PRN PRN #30 capsule 01/02/1701/03/17 Rx Clindamycin [Cleocin] 300 mg PO BID #14 capsule 01/04/17 01/05/17 Unknown Rx Duloxetine [Cymbalta] 30 mg PO DAILY #30 capsule 01/15/17 Unknown Rx Duloxetine [Cymbalta] 60 mg PO DAILY #30 capsule 01/15/17 Unknown Rx Oxycodone HCl/Acetaminophen 1 each PO Q4H PRN PRN #10 tablet 01/22/17 Unknown Rx [Percocet 10-325 mg Tablet] - History of Present Illness-Headache Nature of Presenting Problem: 51 yo female presents to ER with migraine that started this morning. Headache Location: reports: frontal Quality of Pain: reports: aching Severity: reports: severe Onset/Duration: reports: this morning Timing: reports: still present, getting worse Headache Context: reports: nothing Headache History: reports: frequent headaches, history of migraines Any recent trauma/injury?: reports: none Headache severity at the maximum: severe Modifying Factors: improves with: nothing Associated Symptoms: reports: denies symptoms Similar Symptoms Previously?: Yes Recently seen or treated by another doctor?: Yes Review of Systems - Adult - REVIEW OF SYSTEMS - ADULT Constitutional: reports: no symptoms reported Eyes: reports: no symptoms reported Ears, Nose, Mouth & Throat: reports: no symptoms reported Cardiovascular: reports: no symptoms reported Respiratory: reports: no symptoms reported Gastrointestinal: reports: no symptoms reported Genitourinary: reports: no symptoms reported Musculoskeletal: reports: no symptoms reported Integumentary: reports: no symptoms reported Neurological: reports: see HPI, headache/migraines Psychiatric: reports: no symptoms reported Endocrine: reports: no symptoms reported Hematologic/Lymphatic: reports: no symptoms reported Allergic/Immunologic: reports: no symptoms reported All Other Systems: Reviewed and Negative Past History - Adult - PAST MEDICAL HISTORY-ADULT Review of Records: reports: Old Records Reviewed, Nursing Assessment Review, Medications Reviewed, Social history reviewed & non-contributory. Major Childhood Illnesses: reports: denies history Cardiovascular: reports: HTN Respiratory: reports: asthma Gastrointestinal: reports: denies history Obstetrical/Gynecological: reports: denies history Genitourinary: reports: denies history Musculoskeletal: reports: denies history Neurological: reports: headaches/migraines Psychiatric: reports: anxiety, depression Endocrine/Immune: reports: Diabetes Diabetes Type: Type 2 Other Conditions: reports: denies history Additional History: Frequent visits to the ER - PRIOR SURGERIES/PROCEDURES Surgical/Procedure History: reports: reviewed, not pertinent - PRIOR HOSPITALIZATIONS Prior Hospitalizations: reports: for other non-related - IMMUNIZATION STATUS Childhood Immunizations: See Nurse Assessment Flu Vaccine: See Nurse Assessment - FAMILY HISTORY Family History: reviewed, not pertinent - SOCIAL HISTORY Smoking: cigarettes, greater than 1 pack/day (1 ppd) Provider spent 3-5 mins advising pt. on dangers of tobacco.: Discussed manners to quit use, and f/u contacts for add'l counseling. 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 Exam: normal hearing, normal speech, PERRL Coordination/Gait: normal gait Motor/Sensory: no motor deficit, no sensory deficit Neurologic: grossly normal Integumentary: normal color, normal turgor, warm/dry Psych/Mental Status: normal mood/affect, normal thought content, normal thought process, oriented x 3 - Glascow Coma Scale Best Eye Response: (4) open spontaneously Best Verbal Response: (5) oriented Best Motor Response: (6) obeys commands Total Glascow Score: 15 Progress - PLAN OF CARE/RESULTS Progress/Plan/Lab Results: 1330-Discussed results/dx/tx/discharge and follow up instructions; patient verbalized understanding. Orders Category Date Time Status Nalbuphine [Nubain] Med 01/21/17 13:31 Discontinued 10 mg IM NOW ONE Promethazine [Phenergan] Med 01/21/17 13:31 Discontinued 25 mg IM NOW ONE Sodium Chloride 0.9% Med 01/21/17 13:31 Discontinued 10 ml INJ NOW ONE - REASSESSMENT Reassessment #1 Time Reassessed: 13:30 Status: improving Departure - Departure Time of Disposition Order: 13:32 DIAGNOSIS: Nausea Chronic headache Qualifiers: Headache type: unspecified Intractability: intractable Qualified Code(s): R51 - Headache Migraine aura, persistent Qualifiers: Status migrainosus presence: with status migrainosus Intractability: not intractable Qualified Code(s): G43.501 - Persistent migraine aura without cerebral infarction, not intractable, with status migrainosus Disposition: HOME 01 Certified Medical Emergency: Emergent Condition: Good Additional Instructions: Follow up with primary care doctor. Sleep in a cool, dark, quiet room. ED Follow Up Instructions: You have been treated by a care provider in the Emergency Department. These instructions are being provided to you so you can have an understanding of how to care for yourself upon discharge. Upon discharge from the Emergency Department, you are responsible for making arrangements for follow-up care by a physician of your choice. Take all prescribed medications as directed. Return to the Emergency Department immediately for any new or worsening symptoms. You may call the Physician Referral phone number at [phone] to obtain a list of Physicians who are taking new patients. Referrals: Washington Barlow [Primary Care Provider] - Instructions: Migraine Headache, [id number] Attestation - Physician/ CARL Attestation Patient care was provided by Advanced Practice Provider:: Yes Advanced Practice Provider:: Chel Ram Advanced Practice Provider documentation review:: The Mid-level provider documentation, treatment plan and medical decision making was reviewed by the physician who agrees with all treatment and medical decision making by the MLP.
== END 2017-01-21 13:52 | disposition home or self-care (01) ==
LOC: P.ED 12:37
DX: G43.501 Persistent migraine aura without cerebral infarction, not intractable, with status migrainosus (principal); R51 Headache; R11.0 Nausea; I10 Essential (primary) hypertension; E11.9 Type 2 diabetes mellitus without complications; F41.9 Anxiety disorder, unspecified; F32.9 Major depressive disorder, single episode, unspecified; F17.210 Nicotine dependence, cigarettes, uncomplicated; Z71.6 Tobacco abuse counseling; Z79.899 Other long term (current) drug therapy
CPT/HCPCS: 96372; J2300; J2550

== ENCOUNTER 2017-01-22 18:13 | Emergency (ER) ==
[2017-01-22 18:23] VITALS: BP 130/74
[2017-01-22] MEDS ORDERED: PHENERGAN IM ONE (19:16)
[2017-01-22] MEDS ORDERED: NUBAIN IM ONE (19:16)
[2017-01-22] MEDS ORDERED: PHENERGAN ONE (19:17)
[2017-01-22] MEDS ORDERED: NUBAIN ONE (19:18)
--- NOTE | 2017-01-22 19:21 | PROVIDER DOCUMENTATION ---
HPI-Headache - General Chief Complaint: Headache Stated Complaint: HEADACHE Time Seen by Provider: 01/22/17 19:12 Source: patient Allergies/Adverse Reactions: Patient Allergies Allergy/AdvReac Type Severity Reaction Status Date / Time ondansetron HCl * Allergy Intermediate DIZZINESS Verified 01/05/17 18:02 [From Zofran] prochlorperazine maleate * Allergy Mild FLUSHING Verified 01/05/17 18:02 [From Compazine] sumatriptan [From Imitrex] Allergy Mild SHORTNESS Verified 01/05/17 18:02 OF BREATH prochlorperazine Allergy Unknown Verified 01/05/17 18:02 [From Compazine] prochlorperazine edisylate * Allergy Unknown Verified 01/05/17 18:02 [From Compazine] sumatriptan succinate * Allergy SHORTNESS Verified 01/05/17 18:02 [From Imitrex] OF BREATH Home Medications: Home Medication List Medication Instructions Recorded Confirmed Last Taken Type Duloxetine [Cymbalta] 90 mg PO DAILY 06/02/14 01/05/17 01/03/17 History Loratadine [Claritin] 10 mg PO DAILY 06/02/14 01/05/17 01/03/17 History Metformin [Glucophage] 500 mg PO DAILY 06/02/14 01/05/17 01/03/17 History Topiramate [Topamax] 100 mg PO BID 06/02/14 01/05/17 01/03/17 History Zolmitriptan Nasal [place] [Zomig 5 mg PO BID PRN 11/29/14 01/05/17 01/03/17 History Nasal [place]] Albuterol Sulfate [Albuterol 1 - 2 puff IH 3-4XDAY PRN PRN #1 08/26/15 01/05/17 01/03/17 Rx Sulfate Hfa] hfa.aer.ad Dapagliflozin/Metformin HCl 1 tab PO DAILY 08/01/16 01/05/17 01/03/17 History [Xigduo Xr 10 mg-500 mg Tablet] Liraglutide [Victoza] 1 applicatn IM DAILY 08/01/16 01/05/17 01/03/17 History Topiramate [Topamax] 250 mg PO BID 08/01/16 01/05/17 01/03/17 History Duloxetine [Cymbalta] 90 mg PO DAILY 09/25/16 01/05/17 01/03/17 History Rizatriptan Benzoate [Maxalt] 10 mg PO DAILY PRN PRN #3 tablet 11/17/1601/03/17 Rx Clindamycin [Cleocin] 300 mg PO Q6HR #60 capsule 11/23/16 01/05/17 01/03/17 Rx Dapagliflozin/Metformin HCl 1 each PO DAILY #30 tab.bp.24h 11/23/16 01/05/17 Rx [Xigduo Xr 10 mg-500 mg Tablet] Dapagliflozin/Metformin HCl 1 each PO DAILY #30 tab.bp.24h 12/09/16 01/05/17 Rx [Xigduo Xr 10 mg-1,000 mg Tab] Duloxetine HCl [Cymbalta] 90 mg PO DAILY #30 capsule. 12/09/16 01/05/17 Rx Duloxetine [Cymbalta] 30 mg PO DAILY #30 capsule 12/09/16 01/05/17 01/03/17 Rx Duloxetine [Cymbalta] 60 mg PO DAILY #30 capsule 12/09/16 01/05/17 01/03/17 Rx Liraglutide [Victoza] 1.8 mg SUBQ DAILY #5 pen.injctr 12/09/16 01/05/17 Rx Hydroxyzine Pamoate [Vistaril] 25 mg PO TID PRN PRN #30 capsule 01/02/1701/03/17 Rx Clindamycin [Cleocin] 300 mg PO BID #14 capsule 01/04/17 01/05/17 Unknown Rx Duloxetine [Cymbalta] 30 mg PO DAILY #30 capsule 01/15/17 Unknown Rx Duloxetine [Cymbalta] 60 mg PO DAILY #30 capsule 01/15/17 Unknown Rx Oxycodone HCl/Acetaminophen 1 each PO Q4H PRN PRN #10 tablet 01/22/17 Unknown Rx [Percocet 10-325 mg Tablet] - History of Present Illness-Headache Nature of Presenting Problem: 51 year old female presents to the ER with complaint of headache. Pt has a history of chronic headaches. Quality of Pain: reports: aching Onset/Duration: reports: 24 hours ago Timing: reports: still present Headache History: reports: frequent headaches, chronic headaches Review of Systems - Adult - REVIEW OF SYSTEMS - ADULT Constitutional: denies: chills, fever Eyes: reports: no symptoms reported Ears, Nose, Mouth & Throat: reports: no symptoms reported Cardiovascular: reports: no symptoms reported Respiratory: reports: no symptoms reported Gastrointestinal: reports: no symptoms reported Genitourinary: reports: no symptoms reported Musculoskeletal: reports: no symptoms reported Integumentary: reports: no symptoms reported Neurological: reports: headache/migraines. denies: dizziness/vertigo Psychiatric: reports: no symptoms reported Endocrine: reports: no symptoms reported Hematologic/Lymphatic: reports: no symptoms reported Allergic/Immunologic: reports: no symptoms reported All Other Systems: Reviewed and Negative Past History - Adult - PAST MEDICAL HISTORY-ADULT Review of Records: reports: Nursing Assessment Review, Medications Reviewed Major Childhood Illnesses: reports: denies history Cardiovascular: reports: HTN Respiratory: reports: asthma Gastrointestinal: reports: denies history Obstetrical/Gynecological: reports: denies history Genitourinary: reports: denies history Musculoskeletal: reports: denies history Neurological: reports: headaches/migraines Psychiatric: reports: anxiety Endocrine/Immune: reports: Diabetes Other Conditions: reports: denies history Additional History: Frequent visits to the ER - PRIOR SURGERIES/PROCEDURES Surgical/Procedure History: reports: reviewed, not pertinent - PRIOR HOSPITALIZATIONS Prior Hospitalizations: reports: for other non-related - IMMUNIZATION STATUS Childhood Immunizations: See Nurse Assessment Flu Vaccine: See Nurse Assessment - FAMILY HISTORY Family History: reviewed, not pertinent Physical Exam- Neurological - Physical Exam-Neuro General Appearance: alert, no apparent distress Eye Exam: bilateral eye: normal inspection, PERRL HENMT: normocephalic/atraumatic, moist mucous membranes Head Injury: no evidence of injury. 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 These instructions are being provided to you so you can have an understanding of how to care for yourself upon discharge. Upon discharge from the Emergency Department, you are responsible for making arrangements for follow-up care by a physician of your choice. Take all prescribed medications as directed. Return to the Emergency Department immediately for any new or worsening symptoms. You may call the Physician Referral phone number at [phone] to obtain a list of Physicians who are taking new patients. Prescriptions: Oxycodone HCl/Acetaminophen [Percocet 10-325 mg Tablet] 1 each PO Q4H PRN PRN # 10 tablet PRN Reason: Pain Referrals: Washington Barlow [Primary Care Provider] - Forms: Return to School/Parent Work Instructions: Migraine Headache, [id number], Oxycodone tablets or capsules Attestation - Scribe Verification/Attestation Scribe:: Naomi Lino Acting as Scribe for:: Justo Hernández Scribe documention review:: This chart was documented by a scribe and accurately reflects the service the provider performed and the decisions made by the provider.
== END 2017-01-22 19:25 | disposition home or self-care (01) ==
LOC: P.ED 18:13
DX: R51 Headache (principal); G89.29 Other chronic pain; I10 Essential (primary) hypertension; J45.909 Unspecified asthma, uncomplicated; E11.9 Type 2 diabetes mellitus without complications; F41.9 Anxiety disorder, unspecified; Z79.899 Other long term (current) drug therapy
CPT/HCPCS: 96372; J2300; J2550

== ENCOUNTER 2017-01-24 13:52 | Emergency (ER) ==
[2017-01-24] MEDS ORDERED: NUBAIN IM ONE (14:59)
[2017-01-24] MEDS ORDERED: PHENERGAN IM ONE (14:59)
--- NOTE | 2017-01-24 15:06 | PROVIDER DOCUMENTATION ---
HPI-Headache <Bria Torres - Last Filed: 01/24/17 15:05> - General Source: patient - History of Present Illness-Headache Headache Location: reports: frontal Quality of Pain: reports: sharp Severity: reports: mild Onset/Duration: reports: unsure Timing: reports: still present Headache Context: reports: nothing Headache History: reports: frequent headaches Any recent trauma/injury?: reports: none Headache severity at the maximum: mild Headache Exacerbated by:: reports: nothing Associated Symptoms: reports: headache, nausea Similar Symptoms Previously?: Yes Recently seen or treated by another doctor?: Yes <Essence Boggs - Last Filed: 01/24/17 15:27> - General Chief Complaint: Headache Stated Complaint: HEADACHE Time Seen by Provider: 01/24/17 14:58 Allergies/Adverse Reactions: Patient Allergies Allergy/AdvReac Type Severity Reaction Status Date / Time ondansetron HCl * Allergy Intermediate DIZZINESS Verified 01/24/17 14:01 [From Zofran] prochlorperazine maleate * Allergy Mild FLUSHING Verified 01/24/17 14:01 [From Compazine] sumatriptan [From Imitrex] Allergy Mild SHORTNESS Verified 01/24/17 14:01 OF BREATH prochlorperazine Allergy Unknown Verified 01/24/17 14:01 [From Compazine] prochlorperazine edisylate * Allergy Unknown Verified 01/24/17 14:01 [From Compazine] sumatriptan succinate * Allergy SHORTNESS Verified 01/24/17 14:01 [From Imitrex] OF BREATH Home Medications: Home Medication List Medication Instructions Recorded Confirmed Last Taken Type Duloxetine [Cymbalta] 90 mg PO DAILY 06/02/14 01/24/17 01/03/17 History Loratadine [Claritin] 10 mg PO DAILY 06/02/14 01/24/17 01/03/17 History Metformin [Glucophage] 500 mg PO DAILY 06/02/14 01/24/17 01/03/17 History Topiramate [Topamax] 100 mg PO BID 06/02/14 01/24/17 01/03/17 History Zolmitriptan Nasal [place] [Zomig 5 mg PO BID PRN 11/29/14 01/24/17 01/03/17 History Nasal [place]] Albuterol Sulfate [Albuterol 1 - 2 puff IH 3-4XDAY PRN PRN #1 08/26/15 01/24/17 01/03/17 Rx Sulfate Hfa] hfa.aer.ad Dapagliflozin/Metformin HCl 1 tab PO DAILY 08/01/16 01/24/17 01/03/17 History [Xigduo Xr 10 mg-500 mg Tablet] Liraglutide [Victoza] 1 applicatn IM DAILY 08/01/16 01/24/17 01/03/17 History Topiramate [Topamax] 250 mg PO BID 08/01/16 01/24/17 01/03/17 History Duloxetine [Cymbalta] 90 mg PO DAILY 09/25/16 01/24/17 01/03/17 History Rizatriptan Benzoate [Maxalt] 10 mg PO DAILY PRN PRN #3 tablet 11/17/1601/03/17 Rx Clindamycin [Cleocin] 300 mg PO Q6HR #60 capsule 11/23/16 01/24/17 01/03/17 Rx Dapagliflozin/Metformin HCl 1 each PO DAILY #30 tab.bp.24h 11/23/16 01/24/17 Rx [Xigduo Xr 10 mg-500 mg Tablet] Dapagliflozin/Metformin HCl 1 each PO DAILY #30 tab.bp.24h 12/09/16 01/24/17 Rx [Xigduo Xr 10 mg-1,000 mg Tab] Duloxetine HCl [Cymbalta] 90 mg PO DAILY #30 capsule. 12/09/16 01/24/17 Rx Duloxetine [Cymbalta] 30 mg PO DAILY #30 capsule 12/09/16 01/24/17 01/03/17 Rx Duloxetine [Cymbalta] 60 mg PO DAILY #30 capsule 12/09/16 01/24/17 01/03/17 Rx Liraglutide [Victoza] 1.8 mg SUBQ DAILY #5 pen.injctr 12/09/16 01/24/17 Rx Hydroxyzine Pamoate [Vistaril] 25 mg PO TID PRN PRN #30 capsule 01/02/1701/03/17 Rx Clindamycin [Cleocin] 300 mg PO BID #14 capsule 01/04/17 01/24/17 Unknown Rx Duloxetine [Cymbalta] 30 mg PO DAILY #30 capsule 01/15/17 01/24/17 Unknown Rx Duloxetine [Cymbalta] 60 mg PO DAILY #30 capsule 01/15/17 01/24/17 Unknown Rx Oxycodone HCl/Acetaminophen 1 each PO Q4H PRN PRN #10 tablet 01/22/17 01/24/17 Unknown Rx [Percocet 10-325 mg Tablet] - History of Present Illness-Headache Nature of Presenting Problem: Pt is a 51 yof who came to the ED with a cc of headache. Pt reports was here 9 days ago, 6 days ago, and 3 days ago all for migraines. Pt reports her migraines are secondary to stress and her father recently passed a couple of weeks ago. Pt reports that this isn't the worst headache she has ever had. pt reports she has nausea with her migraine. (Essence Boggs) Review of Systems - Adult - REVIEW OF SYSTEMS - ADULT Constitutional: denies: chills, fever Eyes: denies: decreased vision, double vision Ears, Nose, Mouth & Throat: reports: no symptoms reported Cardiovascular: reports: no symptoms reported Respiratory: reports: no symptoms reported Gastrointestinal: reports: no symptoms reported Genitourinary: reports: no symptoms reported Musculoskeletal: reports: no symptoms reported Integumentary: reports: no symptoms reported Neurological: reports: headache/migraines. denies: loss of balance, seizure, tremors Psychiatric: reports: no symptoms reported Endocrine: reports: no symptoms reported Hematologic/Lymphatic: reports: no symptoms reported Allergic/Immunologic: reports: no symptoms reported All Other Systems: Reviewed and Negative <Essence Boggs - Last Filed: 01/24/17 15:27> Past History - Adult - PAST MEDICAL HISTORY-ADULT Major Childhood Illnesses: reports: denies history Cardiovascular: reports: HTN Respiratory: reports: asthma Gastrointestinal: reports: denies history Obstetrical/Gynecological: reports: denies history Genitourinary: reports: denies history Musculoskeletal: reports: denies history Neurological: reports: headaches/migraines Psychiatric: reports: anxiety Endocrine/Immune: reports: Diabetes Other Conditions: reports: denies history Additional History: Frequent visits to the ER - PRIOR SURGERIES/PROCEDURES Surgical/Procedure History: reports: reviewed, not pertinent - PRIOR HOSPITALIZATIONS Prior Hospitalizations: reports: for other non-related - IMMUNIZATION STATUS Childhood Immunizations: See Nurse Assessment Flu Vaccine: See Nurse Assessment - FAMILY HISTORY Family History: reviewed, not pertinent <Bria Torres - Last Filed: 01/24/17 15:05> - PAST MEDICAL HISTORY-ADULT Review of Records: reports: Old Records Reviewed, Nursing Assessment Review Neurological: reports: headaches/migraines Psychiatric: reports: anxiety, depression Endocrine/Immune: reports: Diabetes - IMMUNIZATION STATUS Childhood Immunizations: See Nurse Assessment Flu Vaccine: See Nurse Assessment <Essence Boggs - Last Filed: 01/24/17 15:27> Physical Exam- Neurological - Physical Exam-Neuro Initial Vital Signs Reviewed: Yes General Appearance: appears well, alert HENMT: normocephalic/atraumatic, moist mucous membranes, normal ENT inspection Head Injury: no evidence of injury Neck: non-tender Respiratory: chest non-tender, lungs clear, normal breath sounds Cardiovascular: normal peripheral pulses, regular rate, rhythm Abdominal Exam: normal bowel sounds, non tender Extremity: 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, non-tender slubber tender Exam: normal hearing, normal speech Coordination/Gait: normal gait Motor/Sensory: no motor deficit Neurologic: grossly normal Integumentary: normal turgor, warm/dry Psych/Mental Status: normal mood/affect, normal thought content, normal thought process, oriented x 3 <Essence Boggs - Last Filed: 01/24/17 15:27> Progress <Bria Torres - Last Filed: 01/24/17 15:05> - REASSESSMENT Reassessment #1 Time Reassessed: 15:12 (discussed with pt seeking treatment with her counselor, offered to get her help here but pt refused. Pt agreeded to follow up with her counselor. ) <Essence Boggs - Last Filed: 01/24/17 15:27> - PLAN OF CARE/RESULTS Progress/Plan/Lab Results: Vital Signs - 24 hr 01/24/17 13:58 Temperature 98.4 F Pulse Rate 84 Respiratory 17 Rate Blood Pressure 124/76 O2 Sat by Pulse 99 Oximetry Orders Category Date Time Status Nalbuphine [Nubain] Med 01/24/17 14:59 Discontinued 10 mg IM NOW ONE Promethazine [Phenergan] Med 01/24/17 14:59 Discontinued 25 mg IM NOW ONE (Essence Boggs) Departure - Departure Time of Disposition Order: 15:05 Certified Medical Emergency: Emergent <Bria Torres - Last Filed: 01/24/17 15:05> - Departure Time of Disposition Order: 15:18 Certified Medical Emergency: Emergent <Essence Boggs - Last Filed: 01/24/17 15:27> - Departure DIAGNOSIS: Stress Chronic headache Qualifiers: Headache type: tension-type Intractability: not intractable Qualified Code(s): G44.229 - Chronic tension-type headache, not intractable Disposition: HOME 01 Condition: Stable Additional Instructions: Follow up with your counselor as we discussed ED Follow Up Instructions: You have been treated by a care provider in the Emergency Department. These instructions are being provided to you so you can have an understanding of how to care for yourself upon discharge. Upon discharge from the Emergency Department, you are responsible for making arrangements for follow-up care by a physician of your choice. Take all prescribed medications as directed. Return to the Emergency Department immediately for any new or worsening symptoms. You may call the Physician Referral phone number at [phone] to obtain a list of Physicians who are taking new patients. Referrals: Washington Barlow [Primary Care Provider] - Instructions: Migraine Headache, [id number] Attestation - Scribe Verification/Attestation Scribe:: Essence Boggs Acting as Scribe for:: Bria Torres Scribe documention review:: This chart was documented by a scribe and accurately reflects the service the provider performed and the decisions made by the provider. <Essence Boggs - Last Filed: 01/24/17 15:27> Physician Attestation
[2017-01-24 15:49] VITALS: BP 130/074
== END 2017-01-24 15:30 | disposition home or self-care (01) ==
LOC: P.ED 13:52
DX: G44.229 Chronic tension-type headache, not intractable (principal); F43.9 Reaction to severe stress, unspecified; R11.0 Nausea; I10 Essential (primary) hypertension; J45.909 Unspecified asthma, uncomplicated; E11.9 Type 2 diabetes mellitus without complications; F41.9 Anxiety disorder, unspecified; Z79.899 Other long term (current) drug therapy
CPT/HCPCS: J2300; J2550